=== PATIENT | female | born 1950 | race Native Hawaiian/Other Pacific Islander ===

== ENCOUNTER 2021-12-16 09:45 | Observation (INO) ==
[2021-12-16 10:38] LABS: Basophils # (auto) 0.04 K/uL (0-0.2); Basophils % (auto) 0.5 %; Eosinophils # (auto) 0.31 K/uL (0-0.5); Eosinophils % (auto) 3.7 %; Hematocrit (blood only) 41.5 % (37-47); Hemoglobin 13.4 g/dL (12.0-16.0); Immature Granulocytes # (auto) 0.01 K/uL (0.00-0.02); Immature Granulocytes % (auto) 0.1 %; Lymphocytes # (auto) 3.69 K/uL (1.2-3.4); Lymphocytes % (auto) 43.5 %; Mean Corpuscular Hemoglobin 30.8 pg (25-34); Mean Corpuscular Hgb Conc 32.3 g/dL (32-36); Mean Corpuscular Volume 95.4 fL (80-100); Mean Platelet Volume 9.7 fL (7.4-10.4); Monocytes # (auto) 0.76 K/uL (0.11-0.59); Neutrophils # (auto) 3.68 K/uL (1.4-6.5); Neutrophils % (auto) 43.2 %; Platelet Count 345 K/uL (130-400); RDW Coefficient of Variation 13.7 % (11.5-14.5); RDW Standard Deviation 48.2 fL (36.4-46.3); Red Blood Count 4.35 M/uL (4.2-5.4); White Blood Count 8.49 K/uL (4.8-10.8)
--- NOTE | 2021-12-16 10:48 | XRay Report ---
SINGLE VIEW CHEST CLINICAL HISTORY: Atypical chest pain. FINDINGS: An AP, portable, upright chest radiograph is compared to study dated 10/22/2021 and correlat ed with chest CT dated 09/09/2021. The heart is top normal for projection noting atherosclerotic calc ification of the thoracic aorta. Emphysema and chronic interstitial thickening is similar to previous . There is no airspace consolidation or pleural effusion. Scarring/atelectasis is noted at the lung b ases. There are scattered calcified granulomas. No pneumothorax is seen. The skeletal structures are osteopenic. There are healed right-sided rib fractures. IMPRESSION: Emphysematous change with no acute cardiopulmonary abnormality. ACT 112: Negative or not required by law. Electronically signed by: Santos Isaacs M.D. 12/16/2021 10:47 AM
--- NOTE | 2021-12-16 10:53 | Emergency Department Note ---
Impression & Plan Chest pain, Arm pain ED Provider Note NAME: FIDEL MANUEL AGE: 71 SEX: F : 1950 ARRIVES VIA: Ambulance INFORMANT: Patient ED PROVIDER(S): Sid Self DO CHIEF COMPLAINT: chest pain HPI: Patient is a 71-year-old female who presents to the ER with with a past medical history of CAD, MO, hyperlipidemia, smoker, diabetes, and previous CVA who presents to the ER for left arm/axilla pain, as well as chest pain shoulder and jaw pain which started around 8 AM. Lasted for about an hour. [place] similar to her previous MIs but slightly different as she never had any previous chest pain. She denies any belly pain, nausea, vomiting, or diarrhea. No dysuria, urgency, or frequency. She was given nitro and aspirin and symptoms have completely resolved. Her pain is a 0 out of 10. No other symptoms. The jaw and arm pain felt similar to her previous MIs.Last cath/stent was in 2017-18 per patient and family. ROS: See above HPI for pertinent positives & negatives. A total of 10 systems reviewed and were otherwise negative. PAST MEDICAL HISTORY:See Below PAST SURGICAL HISTORY:See Below FAMILY HISTORY:See Below SOCIAL HISTORY:See Below HOME MEDICATIONS:See Below ALLERGIES:See Below VITALS:See Below PHYSICAL EXAMINATION: GENERAL: Sitting up in bed, alert, well appearing, well nourished, no distress, non-toxic EYE EXAM: normal conjunctiva. PERRL and EOM's grossly intact. OROPHARYNX: no exudate, no erythema, lips, buccal mucosa, and tongue normal and mucous membranes are moist NECK: supple, no nuchal rigidity, no adenopathy, non-tender LUNGS: Clear to auscultation. Normal chest wall mechanics HEART: no murmurs, S1 normal and S2 normal ABDOMEN: abdomen soft, non-tender, normo-active bowel sounds, no masses, no rebound or guarding. BACK: Back is symmetrical on inspection and there is no deformity, no midline tenderness, no CVA tenderness. SKIN: no rashes and no bruising UPPER EXTREMITIES: upper extremities are grossly normal. LOWER EXTREMITIES: No pitting edema. Calves are equal bilateral NEURO EXAM: Normal sensorium, cranial nerves II-XII grossly intact, normal speech, no gross weakness of arms, no gross weakness of legs. MEDICAL DECISION MAKING: Patient is a 71-year-old female with previous MIs who presents ER for chest pain arm pain jaw pain. IV was established blood was obtained. Labs show no s ignificant leukocytosis or anemia. BMP along with LFTs bilirubin and lipase is unremarkable. Troponin was negative. She was given aspirin prior to arrival as well as nitro with resolution of her symptoms. This feels similar to his previous MO. EKG was nondiagnostic. Chest x-ray unremarkable. She was updated bedside discussed with the hospitalist admitted for further work-up. Triage Nursing notes reviewed. Limited review of prior medical records performed Vital Signs: reviewed and remarkable for no significant abnormalities Differential diagnosis: Differential diagnoses includes but is not limited to acute coronary syndrome, myocardial infarction, pericarditis, pulmonary embolus, aortic dissection, pneumonia, pneumothorax, musculoskeletal, shingles, esophageal. ER treatment provided: See below Diagnostics interpreted by me: ECG: Sinus rhythm rate 66 Normal axis Left Bundle branch block QTC 492 No significant change from previous with ST depressions in the high lateral leads and left bundle Cardiac Monitoring: An order was placed for continuous cardiac monitoring. The monitor shows a rate of 70 with sinus rhythm. Laboratory studies: As stated above and show below. Imaging studies: Portable AP upright 1 view of the chest was unremarkable Consultation(s): Discussed with hospitalist for further evaluation Procedures: none Critical Care: None Past Med/Surg History Medical History Asthma CAD (coronary atherosclerotic disease) Diabetes Generalized anxiety disorder Glaucoma History of MO (myocardial infarction) History of tobacco abuse Hyperlipidemia Hypertension Hypothyroid Mild cognitive disorder Presence of drug-eluting stent in right coronary artery Seizure Status post insertion of drug-eluting stent into left anterior descending (LAD) artery TIA (transient ischemic attack) Surgical History H/O: hysterectomy Hx of cholecystectomy Hx of wisdom tooth extraction Family History Father Colorectal cancer Cancer Prostate cancer Brother Hypertension Mother Diabetes Denies family history of Ovarian cancer Dyslipidemia Myocardial infarction Breast cancer Lung cancer Social History Smoking Status: Former smoker Tobacco Type: Cigarettes packs per day: 1; Years Smoked: 50; Cigarettes Per Day: 1; Second Hand Exposure: No; Hx Alcohol Use: No Hx Substance Use: No marital status: Current Living Situation: Alone 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 occupational 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 [employer] How many Children do You have: 3 Feels Safe at Home: Yes Childhood Exposure to Second-Hand Smoke: No caffeine: Yes Dental Care, Regularly: Yes Physical Activity Frequency: 5-6 Times per Week Seatbelt Use: always Sunscreen Use: No Allergies Allergies Allergy/AdvReac Type Severity Reaction Status Date / Time Sulfa (Sulfonamide AdvReac Unknown Verified 11/05/21 10:51 Antibiotics) Home Meds Home Medications Medication Instructions Recorded Confirmed aspirin 81 mg chewable tablet 81 mg PO DAILY 04/08/21 12/16/21 zinc 50 mg tablet 50 mg PO DAILY 04/09/21 12/16/21 ascorbate calcium (vitamin C) 500 500 mg PO DAILY 04/23/21 12/16/21 mg tablet cholecalciferol (vitamin D3) 50 50 mcg PO DAILY 04/23/21 12/16/21 mcg (2,000 unit) capsule oxymetazoline 0.05 % nasal spray 2 spray INTRANASAL Q12H PRN 12/16/21 12/16/21 (Afrin (oxymetazoline)) Previous Rx's Medication Instructions Recorded ipratropium 0.5 mg-albuterol 3 mg 3 ml INHALATION Q8H PRN #180 ml 04/06/21 (2.5 mg base)/3 mL nebulization soln atorvastatin 10 mg tablet 10 mg PO DAILY #90 tab 04/20/21 levothyroxine 25 mcg tablet 25 mcg PO DAILY #90 tab 04/20/21 metformin 1,000 mg tablet 1,000 mg PO BID #180 tab 04/20/21 metoprolol tartrate 25 mg tablet 12.5 mg PO BID #90 tab 04/20/21 donepezil 10 mg tablet 10 mg PO HS #90 tab 05/11/21 levetiracetam 500 mg tablet 500 mg PO BID #60 tab 10/12/21 albuterol sulfate 90 mcg/actuation 2 puff INHALATION Q6H PRN #18 g 10/16/21 aerosol inhaler clopidogrel 75 mg tablet 75 mg PO DAILY #30 tab 10/16/21 mirtazapine 7.5 mg tablet 7.5 mg PO DAILY #30 tab 11/05/21 gabapentin 300 mg capsule 300 mg PO DAILY #90 cap 11/17/21 fluticasone fur. 100 mcg-umeclid 1 inh INHALATION DAILY #60 ea 12/15/21 62.5 mcg-vilant 25 mcg inhalat.powder (Trelegy Ellipta) Results & Data (ED) Vital Signs Vital Signs - 24 hr 12/16/21 09:54 12/16/21 09:57 12/16/21 10:44 Temperature 36.6 C Temperature Source Oral Pulse Rate 72 Pulse Rate [Apical] 65 Pulse Rhythm Regular Pulse Strength Normal Respiratory Rate 20 14 Respiratory Effort / Characteristics Non-Labored Spontaneous Non-Labored Spontaneous Respiratory Depth Normal Normal Respiratory Pattern Regular Regular Blood Pressure 125/76 Blood Pressure [Right Arm] 125/76 Blood Pressure Mean 92 Blood Pressure Mean [Right Arm] 92 Blood Pressure Position Sitting Pulse Oximetry 96 94 97 Oxygen Delivery Method Room Air Room Air Room Air Sepsis Recent Fever Within 48 Hours No Sepsis New/Unexplained Change in Mental Status N/A Sepsis Action Taken by Nursing No Action Required 12/16/21 12:25 Temperature Temperature Source Pulse Rate Pulse Rate [Apical] 64 Pulse Rhythm Pulse Strength Respiratory Rate 17 Respiratory Effort / Characteristics Respiratory Depth Normal Respiratory Pattern Blood Pressure Blood Pressure [Right Arm] 120/70 Blood Pressure Mean Blood Pressure Mean [Right Arm] 86 Blood Pressure Position Pulse Oximetry 97 Oxygen Delivery Method Room Air Sepsis Recent Fever Within 48 Hours Sepsis New/Unexplained Change in Mental Status Sepsis Action Taken by Nursing Laboratory Data Result diagrams: 12/16/21 10:00 12/16/21 10:00 Lab Results 12/16/21 12/16/21 Range/Units 10:00 10:00 WBC 8.49 (4.8-10.8) K/uL RBC 4.35 (4.2-5.4) M/uL Hgb 13.4 (12.0-16.0) g/dL Hct 41.5 (37-47) % MCV 95.4 (80-100) fL MCH 30.8 (25-34) pg MCHC 32.3 (32-36) g/dL RDW Std Deviation 48.2 H (36.4-46.3) fL RDW Coeff of Steph 13.7 (11.5-14.5) % Plt Count 345 (130-400) K/uL MPV 9.7 (7.4-10.4) fL Immature Gran % (Auto) 0.1 % Neut % (Auto) 43.2 % Lymph % (Auto) 43.5 % [place] % (Auto) 9.0 % Eos % (Auto) 3.7 % Baso % (Auto) 0.5 % Neut # (Auto) 3.68 (1.4-6.5) K/uL Lymph # (Auto) 3.69 H (1.2-3.4) K/uL [place] # (Auto) 0.76 H (0.11-0.59) K/uL Eos # (Auto) 0.31 (0-0.5) K/uL Baso # (Auto) 0.04 (0-0.2) K/uL Immature Gran # (Auto) 0.01 (0.00-0.02) K/uL Sodium 140 (136-145) mmol/L Potassium 3.6 (3.5-5.1) mmol/L Chloride 107 (98-107) mmol/L Carbon Dioxide 25 (21-32) mmol/L Anion Gap 8 (3-11) BUN 10 (6-23) mg/dl Creatinine 0.73 (0.6-1.2) mg/dl Est Cr Clr Drug Dosing 82.5 ml/min Est GFR ( Amer) 96.7 ml/min Est GFR (Non-Af Amer) 83.4 ml/min BUN/Creatinine Ratio 13.7 (10-20) Glucose 135 H (70-99(Fasting)) mg/dl Calcium 8.8 (8.5-10.1) mg/dl Total Bilirubin 0.3 (0.2-1.0) mg/dl AST 29 (13-39) U/L ALT 18 (7-52) U/L Alkaline Phosphatase 39 (34-104) U/L Troponin I < 0.03 (0-0.04) ng/ml Total Protein 6.7 (6.0-8.3) gm/dl Albumin 4.1 (3.4-5.0) gm/dl Globulin 2.6 (2.5-4.0) gm/dl Albumin/Globulin Ratio 1.6 (0.9-2) Lipase 50 (11-82) U/L Administered Medications Discontinued Medications Ondansetron HCl (Ondansetron Inj 2 Mg/Ml 2 Ml Vial) 4 mg IV NOW STA Stop: 12/16/21 14:37 Last Admin: 12/16/21 14:42 Dose: 4 mg Documented by: [id number] Imaging Data Radiologist's Impression: Chest X-Ray 12/16/21 10:18 SINGLE VIEW CHEST CLINICAL HISTORY: Atypical chest pain. FINDINGS: An AP, portable, upright chest radiograph is compared to study dated 10/22/2021 and correlated with chest CT dated 09/09/2021. The heart is top normal for projection noting atherosclerotic calcification of the thoracic aorta. Emphysema and chronic interstitial thickening is similar to previous. There is no airspace consolidation or pleural effusion. Scarring/atelectasis is noted at the lung bases. There are scattered calcified granulomas. No pneumothorax is seen. The skeletal structures are osteopenic. There are healed right-sided rib fractures. IMPRESSION: Emphysematous change with no acute cardiopulmonary abnormality. ACT 112: Negative or not required by law. Electronically signed by: Santos Isaacs M.D. 12/16/2021 10:47 AM Discharge Plan Visit Data Chief Complaint: Chest Pain ED Provider: Sid Self Discharge Problem: Chest pain, Arm pain Discharge Problem: Chest pain Qualifiers: Chest pain type: unspecified Qualified Code(s): R07.9 - Chest pain, unspecified Arm pain Qualifiers: Laterality: left Qualified Code(s): M79.602 - Pain in left arm
[2021-12-16 11:09] LABS: Troponin I < 0.03 ng/ml (0-0.04)
[2021-12-16 11:10] LABS: Alanine Aminotransferase 18 U/L (7-52); Albumin Globulin Ratio 1.6 (0.9-2); Albumin Level 4.1 gm/dl (3.4-5.0); Alkaline Phosphatase 39 U/L (34-104); Anion Gap 8 (3-11); Aspartate Aminotransferase 29 U/L (13-39); BUN Creatinine Ratio 13.7 (10-20); Bilirubin,Total 0.3 mg/dl (0.2-1.0); Blood Urea Nitrogen 10 mg/dl (6-23); Calcium 8.8 mg/dl (8.5-10.1); Carbon Dioxide 25 mmol/L (21-32); Chloride 107 mmol/L (98-107); Creatinine Clr Calc Pharmacy 82.5 ml/min; Est GFR (African American) 96.7 ml/min; Est GFR (Non-African American) 83.4 ml/min; Globulin 2.6 gm/dl (2.5-4.0); Glucose 135 mg/dl (70-99(Fasting)); Lipase 50 U/L (11-82); Potassium 3.6 mmol/L (3.5-5.1); Sodium 140 mmol/L (136-145); Total Protein 6.7 gm/dl (6.0-8.3)
--- NOTE | 2021-12-16 12:28 | History & Physical Report ---
Date of Service December 16, 2021 Assessment & Plan (1) Atypical chest pain: Plan: Patient did note that symptoms were similar to her previous WA. I did review cath report from 2017, multiple RCA stents at that time Placed in monitored observation Continue to trend cardiac enzymes, first set is negative so far EKG in the morning Continue cardiac medications, low-dose aspirin/clopidogrel/atorvastatin Check fasting lipids Schedule for stress echo in the morning. Consider cardiology consultation if abnormal (2) Hypertension: Plan: Last documented blood pressure 125/76 Continue metoprolol as ordered (3) Diabetes type 2, controlled: Plan: I will hold Metformin for now start diabetic diet Check hemoglobin A1c Sliding scale insulin with meals (4) CAD (coronary atherosclerotic disease): Plan: Medications as noted above (5) COPD with emphysema: Plan: Patient is on as needed albuterol, can order No acute respiratory issues at this time (6) Headache: Plan: It is unclear if this is medication side effect from Keppra. Daughter is concerned regarding a repeat CVA although isolated would be an unusual symptom of this since patient has no other focal neurological issues I will ask neurology to consult, suspect patient will need outpatient ongoing neurology follow-up. For now, can continue Keppra. If this is felt to be source of the headache, may need to be changed over to equivalent medication but will defer this to neurology History of Present Illness Chief Complaint: Chest pain Primary Care Provider: Lui Burns, This is a 71-year-old female with past medical history of CAD, status post stents in the past, previous TIA that presents today complaining of ongoing chest pain. Patient is pleasant good historian, accompanied by her daughter. Of note, they have recently moved within the past year from [place]. Patient tells me that around 815 this morning she started to have chest pain. She describes this as a dull pain in her left axilla that radiates to her left shoulder. Also radiate down her left arm. And also radiating to her left jaw. She had no focal neurological signs with this. Pain was similar to her previous WA although it was accompanied by over chest pain which is not present now. The pain is since resolved and the patient is feeling fine. Of note, she was given nitro by EMS in route. Patient tells me she had a stress test several years ago in [place]. She has had a single cardiology evaluation with Dr. Zenaida villa, and I did review that documentation from 04/28/2021. Daughter is also concerned as the patient has been planing of an ongoing headache. Patient does note a previous history of migraines but more recently had been placed on Keppra for seizure prophylaxis. Although I do see CVA noted in her history, the patient does relate what sounds like a long history of migraine headaches along with potential for previous seizures but no actual diagnosed seizure disorder. Patient has not seen a neurologist since the relocation to this area. Allergies Allergy/AdvReac Type Severity Reaction Status Date / Time Sulfa (Sulfonamide AdvReac Unknown Verified 11/05/21 10:51 Antibiotics) Home Medications Medication Instructions Recorded Confirmed Type ipratropium 0.5 mg-albuterol 3 mg 3 ml INHALATION Q8H PRN #180 ml 04/06/21 12/16/21 Rx (2.5 mg base)/3 mL nebulization soln aspirin 81 mg chewable tablet 81 mg PO DAILY 04/08/21 12/16/21 History zinc 50 mg tablet 50 mg PO DAILY 04/09/21 12/16/21 History atorvastatin 10 mg tablet 10 mg PO DAILY #90 tab 04/20/21 12/16/21 Rx levothyroxine 25 mcg tablet 25 mcg PO DAILY #90 tab 04/20/21 12/16/21 Rx metformin 1,000 mg tablet 1,000 mg PO BID #180 tab 04/20/21 12/16/21 Rx metoprolol tartrate 25 mg tablet 12.5 mg PO BID #90 tab 04/20/21 12/16/21 Rx ascorbate calcium (vitamin C) 500 500 mg PO DAILY 04/23/21 12/16/21 History mg tablet cholecalciferol (vitamin D3) 50 50 mcg PO DAILY 04/23/21 12/16/21 History mcg (2,000 unit) capsule donepezil 10 mg tablet 10 mg PO HS #90 tab 05/11/21 12/16/21 Rx levetiracetam 500 mg tablet 500 mg PO BID #60 tab 10/12/21 12/16/21 Rx albuterol sulfate 90 mcg/actuation 2 puff INHALATION Q6H PRN #18 g 10/16/21 12/16/21 Rx aerosol inhaler clopidogrel 75 mg tablet 75 mg PO DAILY #30 tab 10/16/21 12/16/21 Rx mirtazapine 7.5 mg tablet 7.5 mg PO DAILY #30 tab 11/05/21 12/16/21 Rx gabapentin 300 mg capsule 300 mg PO DAILY #90 cap 11/17/21 12/16/21 Rx fluticasone fur. 100 mcg-umeclid 1 inh INHALATION DAILY #60 ea 12/15/21 12/16/21 Rx 62.5 mcg-vilant 25 mcg inhalat.powder (Trelegy Ellipta) oxymetazoline 0.05 % nasal spray 2 spray INTRANASAL Q12H PRN 12/16/21 12/16/21 History (Afrin (oxymetazoline)) Past Med/Surg History Medical History Asthma CAD (coronary atherosclerotic disease) Diabetes Generalized anxiety disorder Glaucoma History of WA (myocardial infarction) History of tobacco abuse Hyperlipidemia Hypertension Hypothyroid Mild cognitive disorder Presence of drug-eluting stent in right coronary artery Seizure Status post insertion of drug-eluting stent into left anterior descending (LAD) artery TIA (transient ischemic attack) Surgical History H/O: hysterectomy Hx of cholecystectomy Hx of wisdom tooth extraction Family History Father Colorectal cancer Cancer Prostate cancer Brother Hypertension Mother Diabetes Denies family history of Ovarian cancer Dyslipidemia Myocardial infarction Breast cancer Lung cancer Social History Smoking Status: Former smoker Tobacco Type: Cigarettes packs per day: 1; Years Smoked: 50; Cigarettes Per Day: 1; Second Hand Exposure: No; Hx Alcohol Use: No Hx Substance Use: No marital status: Current Living Situation: Alone current occupational status: retired current occupation: [employer] How many Children do You have: 3 Feels Safe at Home: Yes Childhood Exposure to Second-Hand Smoke: No caffeine: Yes Dental Care, Regularly: Yes Physical Activity Frequency: 5-6 Times per Week Seatbelt Use: always Sunscreen Use: No Review of Systems Constitutional: no fever, no chills, no weakness, no weight loss and no weight gain Eyes: as per Subjective / HPI Respiratory: no cough, no chest congestion, no dyspnea and no dyspnea on exertion Cardiovascular: + radiating jaw, neck or arm pain; no chest pain, no dyspnea on exertion, no orthopnea, no palpitations, no lightheadedness and no edema Gastrointestinal: no abdominal pain, no nausea, no vomiting, no constipation and no diarrhea/loose stools Genitourinary: no dysuria, no difficulty urinating, no urinary frequency, no urinary hesitancy, no urinary urgency and no flank pain Musculoskeletal: no back pain, no neck pain, no joint pain, no stiffness and no myalgia Integumentary: no rash Neurologic: + headache(s); no gait abnormality, no unsteadiness, no falls, no generalized weakness, no loss of sensation, no tingling, no lack of coordination, no seizure-like activity, no abnormal speech and no memory loss Physical Exam Constitutional: cooperative; no acute distress Neck: trachea midline, no thyromegaly Respiratory: normal respiratory effort Auscultation: lungs clear to auscultation bilaterally; no crackles, no rales, no rhonchi and no wheezes Cardiovascular: Rate/Rhythm: regular rate and regular rhythm Heart Sounds: normal S1 and normal S2 No point tenderness in left axilla Gastrointestinal (Abdomen): Inspection/Auscultation: abdomen normal to inspection Percussion/Palpation: abdomen soft; abdomen nontender, no guarding, abdomen not rigid and no hepatosplenomegaly Skin: no rashes, warm and dry Neurologic: patellar DTR's 2+ bilat, sensation intact and PERRL, EOMI, accommodation nl, no face palsy, no dysarthria Results & Data Results & Data ([facility]) Vital Signs (Past 12 Hours) Vital Signs Temp Pulse Pulse Resp BP BP Pulse Ox 12/16/21 10:44 97 12/16/21 09:57 36.6 C 72 14 125/76 94 12/16/21 09:54 65 20 125/76 96 Laboratory Results Laboratory Results WBC 8.49 K/uL (4.8-10.8) 12/16/21 10:00 RBC 4.35 M/uL (4.2-5.4) 12/16/21 10:00 Hgb 13.4 g/dL (12.0-16.0) 12/16/21 10:00 Hct 41.5 % (37-47) 12/16/21 10:00 MCV 95.4 fL (80-100) 12/16/21 10:00 MCH 30.8 pg (25-34) 12/16/21 10:00 MCHC 32.3 g/dL (32-36) 12/16/21 10:00 RDW Std Deviation 48.2 fL (36.4-46.3) H 12/16/21 10:00 RDW Coeff of Steph 13.7 % (11.5-14.5) 12/16/21 10:00 Plt Count 345 K/uL (130-400) 12/16/21 10:00 MPV 9.7 fL (7.4-10.4) 12/16/21 10:00 Immature Gran % (Auto) 0.1 % 12/16/21 10:00 Neut % (Auto) 43.2 % 12/16/21 10:00 Lymph % (Auto) 43.5 % 12/16/21 10:00 [place] % (Auto) 9.0 % 12/16/21 10:00 Eos % (Auto) 3.7 % 12/16/21 10:00 Baso % (Auto) 0.5 % 12/16/21 10:00 Neut # (Auto) 3.68 K/uL (1.4-6.5) 12/16/21 10:00 Lymph # (Auto) 3.69 K/uL (1.2-3.4) H 12/16/21 10:00 [place] # (Auto) 0.76 K/uL (0.11-0.59) H 12/16/21 10:00 Eos # (Auto) 0.31 K/uL (0-0.5) 12/16/21 10:00 Baso # (Auto) 0.04 K/uL (0-0.2) 12/16/21 10:00 Immature Gran # (Auto) 0.01 K/uL (0.00-0.02) 12/16/21 10:00 Sodium 140 mmol/L (136-145) 12/16/21 10:00 Potassium 3.6 mmol/L (3.5-5.1) 12/16/21 10:00 Chloride 107 mmol/L (98-107) 12/16/21 10:00 Carbon Dioxide 25 mmol/L (21-32) 12/16/21 10:00 Anion Gap 8 (3-11) 12/16/21 10:00 BUN 10 mg/dl (6-23) 12/16/21 10:00 Creatinine 0.73 mg/dl (0.6-1.2) 12/16/21 10:00 Est Cr Clr Drug Dosing 82.5 ml/min 12/16/21 10:00 Est GFR ( Amer) 96.7 ml/min 12/16/21 10:00 Est GFR (Non-Af Amer) 83.4 ml/min 12/16/21 10:00 BUN/Creatinine Ratio 13.7 (10-20) 12/16/21 10:00 Glucose 135 mg/dl (70-99(Fasting)) H 12/16/21 10:00 Calcium 8.8 mg/dl (8.5-10.1) 12/16/21 10:00 Total Bilirubin 0.3 mg/dl (0.2-1.0) 12/16/21 10:00 AST 29 U/L (13-39) 12/16/21 10:00 ALT 18 U/L (7-52) 12/16/21 10:00 Alkaline Phosphatase 39 U/L (34-104) 12/16/21 10:00 Troponin I < 0.03 ng/ml (0-0.04) 12/16/21 10:00 Total Protein 6.7 gm/dl (6.0-8.3) 12/16/21 10:00 Albumin 4.1 gm/dl (3.4-5.0) 12/16/21 10:00 Globulin 2.6 gm/dl (2.5-4.0) 12/16/21 10:00 Albumin/Globulin Ratio 1.6 (0.9-2) 12/16/21 10:00 Lipase 50 U/L (11-82) 12/16/21 10:00 SARS-CoV-2, RNA, NAAT NEGATIVE (NEGATIVE) 12/16/21 Unknown Impressions Chest X-Ray 12/16/21 10:18 SINGLE VIEW CHEST CLINICAL HISTORY: Atypical chest pain. FINDINGS: An AP, portable, upright chest radiograph is compared to study dated 10/22/2021 and correlated with chest CT dated 09/09/2021. The heart is top normal for projection noting atherosclerotic calcification of the thoracic aorta. Emphysema and chronic interstitial thickening is similar to previous. There is no airspace consolidation or pleural effusion. Scarring/atelectasis is noted at the lung bases. There are scattered calcified granulomas. No pneumothorax is seen. The skeletal structures are osteopenic. There are healed right-sided rib fractures. IMPRESSION: Emphysematous change with no acute cardiopulmonary abnormality. ACT 112: Negative or not required by law. Electronically signed by: Santos Isaacs M.D. 12/16/2021 10:47 AM PG Care Time/CCT Total # of Minutes Spent Total Time Spent with Patient: Total time spent is greater than 50% in coordination of care (as documented) at patient's floor/unit and/or counseling patient: Coding Level of Care Code INT OBSERVATION CARE 71M LVL 3 Diagnoses Atypical chest pain R07.89 Hypertension I10 Diabetes type 2, controlled E11.9 CAD (coronary atherosclerotic disease) I25.10 COPD with emphysema J43.9 Headache R51.9
[2021-12-16] MEDS ORDERED: ONDANSETRON INJ 2 MG/ML 2 ML VIAL IV STA (14:36)
[2021-12-16] MEDS ORDERED: ALBUTEROL HFA 8 GM INHALER INH PRN (15:12)
[2021-12-16] MEDS ORDERED: DEXTROSE 50% 50 ML SYRINGE IV PRN (15:12)
[2021-12-16] MEDS ORDERED: ONDANSETRON INJ 2 MG/ML 2 ML VIAL IV PRN (15:12)
[2021-12-16] MEDS ORDERED: GLUCOSE 10 TABS/TUBE PO PRN (15:12)
[2021-12-16] MEDS ORDERED: CARBOHYDRATES FOR HYPOGLYCEMIA PO PRN (15:12)
[2021-12-16] MEDS ORDERED: GLUCOSE 40% GEL 15 GM TUBE PO PRN (15:12)
[2021-12-16] MEDS ORDERED: GLUCAGON FOR INJ 1 MG VIAL SQ PRN (15:12)
[2021-12-16] MEDS ORDERED: ALBUT/IPRATROP 3MG/0.5MG NEB 3 ML VIAL INH PRN (15:12)
--- NOTE | 2021-12-16 16:08 | Electrocardiogram Report ---
Test Reason : Blood Pressure : / mmHG Vent. Rate : 066 BPM Atrial Rate : 066 BPM P-R Int : 186 ms QRS Dur : 144 ms QT Int : 470 ms P-R-T Axes : 050 016 087 degrees QTc Int : 492 ms Normal sinus rhythm Left bundle branch block Abnormal ECG When compared with ECG of 22-OCT-2021 22:36, No significant change was found Confirmed by Varun Anton ([id number]) on 12/16/2021 4:07:43 PM Referred By: REFERRED SELF Confirmed By:Varun Anton
[2021-12-16] MEDS: ACETAMINOPHEN 325 MG TAB PO PRN (19:33)
[2021-12-16] MEDS: ENOXAPARIN INJ 40 MG/0.4 ML SYR SQ SCH (19:33)
[2021-12-16] MEDS: INSULIN ASPART PER UNIT SC SCH ×2 (19:34→20:46)
[2021-12-16] MEDS: METOPROLOL TARTRATE 25 MG TAB PO SCH (20:40)
[2021-12-16] MEDS: DONEPEZIL HCL 10 MG TAB PO SCH (20:41)
[2021-12-16] MEDS ORDERED: levETIRAcetam 500 MG TAB PO SCH (21:00)
[2021-12-17 03:20] LABS: Basophils # (auto) 0.04 K/uL (0-0.2); Basophils % (auto) 0.5 %; Eosinophils # (auto) 0.26 K/uL (0-0.5); Eosinophils % (auto) 3.3 %; Hematocrit (blood only) 41.7 % (37-47); Hemoglobin 13.5 g/dL (12.0-16.0); Immature Granulocytes # (auto) 0.02 K/uL (0.00-0.02); Immature Granulocytes % (auto) 0.3 %; Lymphocytes # (auto) 3.44 K/uL (1.2-3.4); Lymphocytes % (auto) 43.2 %; Mean Corpuscular Hemoglobin 30.3 pg (25-34); Mean Corpuscular Hgb Conc 32.4 g/dL (32-36); Mean Corpuscular Volume 93.7 fL (80-100); Mean Platelet Volume 9.2 fL (7.4-10.4); Monocytes # (auto) 0.56 K/uL (0.11-0.59); Neutrophils # (auto) 3.64 K/uL (1.4-6.5); Neutrophils % (auto) 45.7 %; Platelet Count 326 K/uL (130-400); RDW Coefficient of Variation 13.5 % (11.5-14.5); RDW Standard Deviation 46.6 fL (36.4-46.3); Red Blood Count 4.45 M/uL (4.2-5.4); White Blood Count 7.96 K/uL (4.8-10.8)
[2021-12-17 03:49] LABS: Alanine Aminotransferase 17 U/L (7-52); Albumin Globulin Ratio 1.6 (0.9-2); Albumin Level 3.9 gm/dl (3.4-5.0); Alkaline Phosphatase 37 U/L (34-104); Anion Gap 6 (3-11); Aspartate Aminotransferase 27 U/L (13-39); BUN Creatinine Ratio 17.5 (10-20); Bilirubin,Total 0.2 mg/dl (0.2-1.0); Blood Urea Nitrogen 14 mg/dl (6-23); Calcium 8.8 mg/dl (8.5-10.1); Carbon Dioxide 27 mmol/L (21-32); Chloride 106 mmol/L (98-107); Cholesterol 150 mg/dl (0-200); Creatinine Clr Calc Pharmacy 75.1 ml/min; Est GFR (African American) 86.6 ml/min; Est GFR (Non-African American) 74.7 ml/min; Globulin 2.4 gm/dl (2.5-4.0); Glucose 107 mg/dl (70-99(Fasting)); HDL Cholesterol 30 mg/dl; Magnesium 1.9 mg/dl (1.7-2.4); Sodium 139 mmol/L (136-145); Total Protein 6.3 gm/dl (6.0-8.3); Triglycerides 460 mg/dl (0-150)
[2021-12-17] MEDS: LEVOTHYROXINE SODIUM 25 MCG TABLET PO SCH (06:01)
[2021-12-17] MEDS: ACETAMINOPHEN 325 MG TAB PO PRN ×2 (06:01→17:51)
[2021-12-17 07:03] LABS: Estimated Average Glucose 160 mg/dl; Hemoglobin A1C 7.2 % (4.5-5.6)
--- NOTE | 2021-12-17 08:12 | Neurology Consultation ---
Date of Consultation December 17, 2021 Assessment & Plan (1) Headache: (2) Seizure: (3) Mild cognitive disorder: (4) Sensory ataxia: (5) Idiopathic polyneuropathy: patient has a history of previous "TIA or stroke" but this is more likely small vessel ischemic disease noted on MRI ( several years ago) as there is no clinical history. She has been on both aspirin and Plavix for this. In addition she has never had any seizures, yet has been on levetiracetam for several years. Patient has a history of migraine headaches which have improved in frequency over time. She is experience a migraine events frequently in the last 2-3 weeks including yesterday and today. Neurologic exam reveals no focal findings, meningeal signs or encephalopathy. However, she does have signs and symptoms consistent with a polyneuropathy (likely secondary to diabetes) and this gives her balance problems consistent with a sensory ataxia. The patient has a history of mild cognitive. Low-dose donepezil. She is functioning very well Recommendations: 1. She does not need, from a neurologic standpoint, to be on both aspirin and Plavix. I would recommend clopidogrel 75 milligrams daily alone. 2. MRI of the brain to evaluate extent severity of small vessel ischemic disease. 3. I am not convinced she needs to be on an anticonvulsant. I recommend decreasing levetiracetam to 250 milligrams twice a day. 4. Sed rate, TSH, B12 5. I would like to follow this patient as an outpatient Overall, I spent a total of 80 minutes with this case including review of records, direct evaluation the patient bedside, and discussion of the case with the patient and RN at bedside, and Dr. Cole, including differential diagnosis and treatment options. History of Present Illness Reason for Consultation: Patient is a 71-year-old, was asked to see the request of Dr. Bowles, for neurologic consultation regarding headaches and other issues. Requesting Physician: Dr. Bowles Attending Physician: Qamar Cole, History of Present Illness This patient has a history of coronary artery disease post HI requiring 2 stents somewhere around 2017. she has a history of type 2 diabetes for at least 5 years, dyslipidemia, and COPD from cigarette smoking. Patient states that over the last several years she has had some nonspecific memory problems and has been on 10 milligrams donepezil daily ever since. The patient has a history of migraine headaches since teenage years. In her 20s and 30s they would occur about once a week but the faded over time. Over the last 5 years she might have a migraine headache perhaps once per year. Typically she will have a headache without triggering factors or aura, waking up in the morning with a right-sided pounding stabbing pain. She would have nausea, photophobia, and phonophobia without vomiting. Gbeu-ydt-uerkxyd medications would help and they would last a few hours. She has never been on a medicine to take daily to prevent headaches. Sometime around 3-4 years ago she was seen by a neurologist who evaluated her for Her symptoms and ended up doing an EEG and an MRI. He told her that she had "mini strokes" and a tendency to have seizures. I do not have any of these results. She has been on 81 milligram aspirin +75 milligrams clopidogrel daily ever since. She has also been taking levetiracetam 500 milligrams twice daily since that time as well. She has never actually had a stroke as far she knows and she has never actually had a seizure. Prior to 2-3 weeks ago she had had a headache for a year or two. sometime 2 or 3 weeks ago she woke up with a pounding headache as before. Headache was no different than her usual headaches and also responded to [id number] medication. These headaches would be almost daily waking up in morning ever since. Two days ago she did not have a headache and yesterday she had a significant headache. This morning she woke up with a very mild right frontotemporal headache. Currently it is dull only. She has no nausea or photophobia. Yesterday around 0800 she had the onset of some left-sided chest pain with some dysesthesias down to her fingers in the left upper extremity. It went up to her jaw. She took 2 Tylenol and was given a nitro by the ambulance crew and by the time she got to the emergency room her symptoms had resolved. She arrived to the emergency room December 16 at 09:54, with a temperature of 36.6, pulse 72 and regular, respiratory rate 14, blood pressure 125/76, and O2 saturation 94 percent. She was asymptomatic without headache, chest pain, or left upper extremity numbness or tingling. She had no focal neurologic deficits, meningeal signs, or encephalopathy. CBC and Chem profile were unremarkable. Glucose was 135. Chest x-ray showed changes consistent with COPD. Overnight she was in normal sinus rhythm in the 60s and 70s with no cardiac dysrhythmia. Today, hemoglobin A1c was 7.2, triglycerides 460, and a total cholesterol 150. CBC and Chem profile will otherwise unremarkable. The patient currently has no headache, speech or vision problem, weakness, numbness, chest pain, shortness of breath, dizziness, balance issues or incontinence of urine. She feels she might be [facility] but she cannot be sure Allergies Allergy/AdvReac Type Severity Reaction Status Date / Time Sulfa (Sulfonamide AdvReac Unknown Verified 11/05/21 10:51 Antibiotics) Home Medications Medication Instructions Recorded Confirmed Type ipratropium 0.5 mg-albuterol 3 mg 3 ml INHALATION Q8H PRN #180 ml 04/06/21 12/16/21 Rx (2.5 mg base)/3 mL nebulization soln aspirin 81 mg chewable tablet 81 mg PO DAILY 04/08/21 12/16/21 History zinc 50 mg tablet 50 mg PO DAILY 04/09/21 12/16/21 History atorvastatin 10 mg tablet 10 mg PO DAILY #90 tab 04/20/21 12/16/21 Rx levothyroxine 25 mcg tablet 25 mcg PO DAILY #90 tab 04/20/21 12/16/21 Rx metformin 1,000 mg tablet 1,000 mg PO BID #180 tab 04/20/21 12/16/21 Rx metoprolol tartrate 25 mg tablet 12.5 mg PO BID #90 tab 04/20/21 12/16/21 Rx ascorbate calcium (vitamin C) 500 500 mg PO DAILY 04/23/21 12/16/21 History mg tablet cholecalciferol (vitamin D3) 50 50 mcg PO DAILY 04/23/21 12/16/21 History mcg (2,000 unit) capsule donepezil 10 mg tablet 10 mg PO HS #90 tab 05/11/21 12/16/21 Rx levetiracetam 500 mg tablet 500 mg PO BID #60 tab 10/12/21 12/16/21 Rx albuterol sulfate 90 mcg/actuation 2 puff INHALATION Q6H PRN #18 g 10/16/21 12/16/21 Rx aerosol inhaler clopidogrel 75 mg tablet 75 mg PO DAILY #30 tab 10/16/21 12/16/21 Rx mirtazapine 7.5 mg tablet 7.5 mg PO DAILY #30 tab 11/05/21 12/16/21 Rx gabapentin 300 mg capsule 300 mg PO DAILY #90 cap 11/17/21 12/16/21 Rx fluticasone fur. 100 mcg-umeclid 1 inh INHALATION DAILY #60 ea 12/15/21 12/16/21 Rx 62.5 mcg-vilant 25 mcg inhalat.powder (Trelegy Ellipta) oxymetazoline 0.05 % nasal spray 2 spray INTRANASAL Q12H PRN 12/16/21 12/16/21 History (Afrin (oxymetazoline)) Patient History Medical History Asthma CAD (coronary atherosclerotic disease) Diabetes Generalized anxiety disorder Glaucoma History of HI (myocardial infarction) History of tobacco abuse Hyperlipidemia Hypertension Hypothyroid Mild cognitive disorder Presence of drug-eluting stent in right coronary artery Seizure Status post insertion of drug-eluting stent into left anterior descending (LAD) artery TIA (transient ischemic attack) Surgical History H/O: hysterectomy Hx of cholecystectomy Hx of wisdom tooth extraction Family History Father , age 85 of metastatic prostate cancer Colorectal cancer Cancer Prostate cancer Brother Hypertension Mother , age 87 with complications of diabetes Diabetes Denies family history of Ovarian cancer Dyslipidemia Myocardial infarction Breast cancer Lung cancer Social History Smoking Status: Former smoker Tobacco Type: Cigarettes packs per day: 1; Years Smoked: 50; Cigarettes Per Day: 1; Smoking End Date: 2 months ago; Second Hand Exposure: Yes; Do You Dip or Chew Tobacco: No; Tobacco Cessation Education Requested by Patient: No Hx Alcohol Use: Yes Alcohol type: hard liquor Alcohol Intake Frequency: Monthly or Less Hx Substance Use: No Preferred Language: Ukrainian Communication Ability: Effective Shampoo Assistant Required: No Beliefs That Will Affect Care: None marital status: Current Living Situation: Alone current occupational status: retired current occupation: retired, age 63, [employer] How many Children do You have: 3 Other Information That Helps Us Care for You: No other: moved 1 year ago from [place] to the [facility]. Feels Safe at Home: Yes Safety Concerns: Feels Safe At This Time Childhood Exposure to Second-Hand Smoke: No caffeine: Yes Dental Care, Regularly: Yes Physical Activity Frequency: 5-6 Times per Week Seatbelt Use: always Sunscreen Use: No Assistive Devices: Glasses Assistive Devices Comment: does not use walker or cane Review of Systems Constitutional: no fever, no fatigue and no weakness Eyes: no diplopia, no eye pain and no worsening vision Ear, Nose, Mouth, Throat: no ear pain, no tinnitus, no hearing loss, no dizziness, no snoring, no hoarseness and no dysphagia Respiratory: no cough and no dyspnea Cardiovascular: no chest pain, no palpitations and no lightheadedness Gastrointestinal: no abdominal pain, no nausea and no vomiting Genitourinary: no dysuria, no urinary frequency and no urinary incontinence Musculoskeletal: + back pain; no neck pain, no radicular pain, no joint pain and no myalgia Integumentary: no rash and no lesions Neurologic: + headache(s) and + memory loss; no gait abnormality, no localized weakness, no generalized weakness, no tingling, no numbness, no tremor(s), no abnormal movements, no abnormal speech and no confusion Psychiatric: no depression, no irritability, no anxiety, no difficulty concentrating, no confusion and no hallucinations Endocrine: no fatigue and no flushing Hematologic / Lymphatic: no easy bleeding and no easy bruising Allergy / Immunological: no urticaria and no problem reported Exam (Neuro) Physical Exam: The patient is right-handed. The patient is awake, alert, and attentive. Speech is normal without any aphasia or dysarthria. The patient can name objects, repeat phrases, and has normal spontaneous speech. Mentation and thought processes are intact, with orientation to person, place and time, and normal fund of knowledge. Attention and concentration are normal. Mood and affect are normal and appropriate. General appearance and grooming are normal. Short and long-term memory are inta ct to conversation. actually, for someone who believe she has memory problems, she does very well. Pupils are 4 mm bilaterally and reactive to light. Extraocular eye muscles are intact without nystagmus. Visual acuity and visual ellis seem normal grossly to confrontation. There are no deficits to sensation in the face in all 3 distributions of the fifth cranial nerve bilaterally. Corneal reflexes are positive bilaterally. Facial strength and symmetry was normal bilaterally. Hearing seems normal bilaterally. Palate moves well without asymmetry. There is normal sternocleidomastoid and trapezius (shoulder shrug) strength bilaterally. Tongue is midline with good strength bilaterally. Neck has a full range of motion without discomfort. There are no cervical bruits bilaterally. There are no cranial or ocular bruits. Heart is without murmur. There is a regular rhythm and rate. Cervical, thoracic, and lumbar spine are nontender to palpation. Gait is slightly wide based, with good arm swing and turns. she is slightly cautious as she moves about. Stance is normal eyes open , but she sways considerably with eyes closed. With outstretched arms there is no drift. There are no resting, postural, or action tremors. There is no ataxia with finger to nose testing. There is good facility in the hands. No other abnormal involuntary movements are noted. Motor strength is 5/5 diffusely in the arms bilaterally including deltoids, biceps, triceps, brachioradialis, wrist flexors and extensors, tip scourer, and intrinsic hand muscles. Motor strength is 5/5 diffusely in the legs bilaterally including hip flexors, quadriceps, hamstrings, gastrocnemius, tibialis anterior, tibialis posterior, and Peroneii muscles. Toe extensors are normal and there is good bulk in the extensor digitorum brevis muscles bilaterally. The limbs have good tone without rigidity or spasticity. There is no atrophy noted in the muscles. Muscle bulk is normal, there is no tenderness to palpation, no myotonia to percussion, and no fasciculations seen. Sensory examination Reveals a stocking decreased pinprick sense loss to the mid lower legs bilaterally. Hands are spared. Reflexes are 0/4 in the biceps, triceps, brachioradialis, and Achilles tendons bilaterally. Quadriceps tendon reflexes are 1/4 bilaterally. There is no clonus bilaterally. Toes are downgoing with plantar stimulation bilaterally. Peripheral pulses are present and of normal quality distally in all 4 limbs. There is no peripheral edema noted in the limbs. Results & Data ([facility]) Vital Signs (Past 12 Hours) Vital Signs Temp Pulse Pulse Resp BP Pulse Ox 12/17/21 08:00 36.7 C 60 18 110/63 95 12/17/21 03:36 36.5 C 56 L 20 104/69 94 12/16/21 23:08 36.6 C 63 16 124/76 91 12/16/21 23:00 61 PG Care Time/CCT Total # of Minutes Spent Total Time Spent with Patient: Total time spent is greater than 50% in coordination of care (as documented) at patient's floor/unit and/or counseling patient: Coding Level of Care Code 97109 Office/Outpt Visit, New Diagnoses Headache R51.9 Seizure R56.9 Mild cognitive disorder F09 Sensory ataxia R27.8 Idiopathic polyneuropathy G60.9 Time Spent (min) 80
[2021-12-17] MEDS: INSULIN ASPART PER UNIT SC SCH ×4 (08:39→20:59)
[2021-12-17] MEDS ORDERED: NON-FORMULARY MEDICATION (Fluticasone-Umeclidin-Vilanter [Trelegy Ellipta] 100-62.5-25 mcg INH SCH (09:00)
[2021-12-17] MEDS: GABAPENTIN 300 MG CAP PO SCH (09:58)
[2021-12-17] MEDS: ASCORBIC ACID 500 MG TAB PO SCH (09:58)
[2021-12-17] MEDS: ZINC SULFATE 220 MG CAPSULE PO SCH (09:58)
[2021-12-17] MEDS: levETIRAcetam 250 MG TAB PO SCH ×2 (09:58→20:57)
[2021-12-17] MEDS: CHOLECALCIFEROL 1,000 UNITS 25 MCG TAB PO SCH (09:58)
[2021-12-17] MEDS: ATORVASTATIN 10 MG TAB PO SCH (09:58)
[2021-12-17] MEDS: CLOPIDOGREL BISULFATE 75 MG TAB PO SCH (09:58)
[2021-12-17] MEDS: ASPIRIN 81 MG CHEW PO SCH (09:58)
[2021-12-17] MEDS: MIRTAZAPINE TAB 15 MG TAB PO SCH (09:59)
[2021-12-17] MEDS: METOPROLOL TARTRATE 25 MG TAB PO SCH ×2 (09:59→20:57)
[2021-12-17] MEDS: FLUTICASONE FUROATE 100MCG 14 PUFFS/INHALER INH SCH (10:00)
[2021-12-17] MEDS: UMECLIDINIUM/VILANTEROL 62.5/25MCG 7 PUFFS/INHALER INH SCH (10:03)
--- NOTE | 2021-12-17 10:19 | Cardiology Consultation ---
Date of Consultation December 17, 2021 Assessment & Plan (1) Unstable angina: (2) CAD (coronary atherosclerotic disease): (3) Presence of drug-eluting stent in right coronary artery: (4) Status post insertion of drug-eluting stent into left anterior descending (LAD) artery: (5) Hypertension: (6) Hyperlipidemia: ASSESSMENT/PLAN: 1. Unstable angina: Given the rise and fall of troponin, symptoms concerning for angina, history of CAD, and improvement/resolution of chest discomfort with nitroglycerin, presentation consistent with unstable angina. Stress testing canceled. Recommend cardiac catheterization. Risks and benefits were discussed with her in detail. She and her daughter were made aware of risks and also that CT surgery is not available at this facility. They are agreeable on pursuing cardiac catheterization when available. Catheterization is not emergent at this point as she is chest pain-free. Continue aspirin and Plavix therapy. Continue statin therapy and beta-radha. 2. CAD s/p RCA and LAD PCI: Continue anti-platelet therapy including aspirin 81 mg daily indefinitely given prior PCI. Continue statin therapy and beta- radha. She reports difficulty with radial access in 2017 catheterization. 3. Hypertension: Blood pressure well controlled. Continue current regimen. 4. Dyslipidemia: LDL has been reasonably controlled on low-dose statin therapy. Consider high-intensity statin therapy. 5. COPD/shortness of breath: Has been documented to have severe COPD. She appears euvolemic. Reports dyspnea with exertion as being chronic and stable. 6. Disposition: Cardiology will continue to follow. Her daughter was contacted via telephone (Sarah Alie) as per patient wishes. Plan was discussed with her. She prefers that her mother proceed with cardiac catheterization. Dr. Cole of the primary hospitalist service was also contacted. On discharge, follow-up with Dr. Estevez, her primary panel builder. Highly complex medical issues. Thank you for allowing me to participate in the care of your patient. Please call for any other questions or concerns. Sincerely, Gurinder Farmer M.D. History of Present Illness Reason for Consultation: Chest pain; hx of CAD; elevated trop Requesting Physician: Qamar Cole DO Attending Physician: Qamar Cole DO History of Present Illness Ms. Wang is a pleasant 71-year-old female with history significant for CAD s/p LAD and RCA PCI in 2017 in setting of MS, type 2 diabetes, hypertension, dyslipidemia, and severe COPD (PFT's 10/06/2021). Her primary panel builder is Dr. Estevez. She moved to [place] in February of 2021 after living in [place]. On 017, she developed NSTEMI and underwent balloon angioplasty of proximal RCA, PCI of mid RCA with 3.5 x 38 mm RUSS and PCI of distal RCA with 3.5 x 9 mm RUSS. She was also noted to have severe LAD disease and underwent staged procedure on 02/03/2017 with PCI of proximal LAD with 3 x 15 mm RUSS. She presented and was admitted on 12/16/2021 for arm and chest pain. She developed left-sided chest pain and left arm pain that radiated to the left jaw while at rest on the couch. Symptoms lasted for 15-20 minutes before resolving after nitroglycerin administration by EMS. There was no associated diaphoresis or shortness of breath. She has not had any recurrent discomfort. She admits that during her MS in 2016, she had left arm symptoms as well. Her initial troponin here was undetectable, but then increased and peaked at 0.16 before trending downward. She has a baseline left bundle branch block dobutamine stress echo had been ordered by the admitting service but due to elevated troponins and her history, her new hospitalist today, Dr. Cole, was contacted and stress testing was canceled and cardiology consultation was requested. She is currently pain-free. She denies shortness of breath at rest, orthopnea, syncope, near-syncope, palpitations, or edema. She has chronic dyspnea with exertion and attributes it to COPD. She had diarrhea few weeks ago for 2 weeks which she attributes to metformin. Diarrhea resolved after she self discontinued metformin. She denies melena, hematochezia, hematuria but does have occasional nausea. Her records indicate seizure disorder but she denies having a seizure ever. Review of systems: As above. Review of systems otherwise negative/unremarkable. Family history: No known premature CAD. Social history: She quit smoking in 2020 after smoking 0.5-1 pack per day for 49 years. Rare alcohol. She lives alone. . Three children. She has a daughter in [place], a son in [place], and a daughter (Sarah Strange) who lives locally and works at [employer]. She was unaccompanied in her room. Allergies Allergy/AdvReac Type Severity Reaction Status Date / Time Sulfa (Sulfonamide AdvReac Unknown Verified 11/05/21 10:51 Antibiotics) Home Medications Medication Instructions Recorded Confirmed Type ipratropium 0.5 mg-albuterol 3 mg 3 ml INHALATION Q8H PRN #180 ml 04/06/21 12/16/21 Rx (2.5 mg base)/3 mL nebulization soln aspirin 81 mg chewable tablet 81 mg PO DAILY 04/08/21 12/16/21 History zinc 50 mg tablet 50 mg PO DAILY 04/09/21 12/16/21 History atorvastatin 10 mg tablet 10 mg PO DAILY #90 tab 04/20/21 12/16/21 Rx levothyroxine 25 mcg tablet 25 mcg PO DAILY #90 tab 04/20/21 12/16/21 Rx metformin 1,000 mg tablet 1,000 mg PO BID #180 tab 04/20/21 12/16/21 Rx metoprolol tartrate 25 mg tablet 12.5 mg PO BID #90 tab 04/20/21 12/16/21 Rx ascorbate calcium (vitamin C) 500 500 mg PO DAILY 04/23/21 12/16/21 History mg tablet cholecalciferol (vitamin D3) 50 50 mcg PO DAILY 04/23/21 12/16/21 History mcg (2,000 unit) capsule donepezil 10 mg tablet 10 mg PO HS #90 tab 05/11/21 12/16/21 Rx levetiracetam 500 mg tablet 500 mg PO BID #60 tab 10/12/21 12/16/21 Rx albuterol sulfate 90 mcg/actuation 2 puff INHALATION Q6H PRN #18 g 10/16/21 12/16/21 Rx aerosol inhaler clopidogrel 75 mg tablet 75 mg PO DAILY #30 tab 10/16/21 12/16/21 Rx mirtazapine 7.5 mg tablet 7.5 mg PO DAILY #30 tab 11/05/21 12/16/21 Rx gabapentin 300 mg capsule 300 mg PO DAILY #90 cap 11/17/21 12/16/21 Rx fluticasone fur. 100 mcg-umeclid 1 inh INHALATION DAILY #60 ea 12/15/21 12/16/21 Rx 62.5 mcg-vilant 25 mcg inhalat.powder (Trelegy Ellipta) oxymetazoline 0.05 % nasal spray 2 spray INTRANASAL Q12H PRN 12/16/21 12/16/21 History (Afrin (oxymetazoline)) Patient History Medical History Asthma CAD (coronary atherosclerotic disease) Diabetes Generalized anxiety disorder Glaucoma History of MS (myocardial infarction) History of tobacco abuse Hyperlipidemia Hypertension Hypothyroid Mild cognitive disorder Presence of drug-eluting stent in right coronary artery Seizure Status post insertion of drug-eluting stent into left anterior descending (LAD) artery TIA (transient ischemic attack) Surgical History H/O: hysterectomy Hx of cholecystectomy Hx of wisdom tooth extraction Family History Father , age 85 of metastatic prostate cancer Colorectal cancer Cancer Prostate cancer Brother Hypertension Mother , age 87 with complications of diabetes Diabetes Denies family history of Ovarian cancer Dyslipidemia Myocardial infarction Breast cancer Lung cancer Social History Smoking Status: Former smoker Tobacco Type: Cigarettes packs per day: 1; Years Smoked: 50; Cigarettes Per Day: 1; Smoking End Date: 2 months ago; Second Hand Exposure: Yes; Do You Dip or Chew Tobacco: No; Tobacco Cessation Education Requested by Patient: No Hx Alcohol Use: Yes Alcohol type: hard liquor Alcohol Intake Frequency: Monthly or Less Hx Substance Use: No Preferred Language: Yoruba Communication Ability: Effective Division Field Inspector Required: No Beliefs That Will Affect Care: None marital status: Single Current Living Situation: Alone current occupational status: retired 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 Feels Safe at Home: Yes Safety Concerns: Feels Safe At This Time Childhood Exposure to Second-Hand Smoke: No caffeine: Yes Dental Care, Regularly: Yes Physical Activity Frequency: 5-6 Times per Week Seatbelt Use: always Sunscreen Use: No Assistive Devices: None Assistive Devices Comment: does not use walker or cane Physical Exam Physical Exam: Gen.: No acute distress. Alert. HEENT: Anicteric sclera. Neck: No JVD. No bruits. Normal carotid upstrokes bilaterally. Cardiac: PMI was nondisplaced. No ventricular heave. Regular. Normal S1-S2. No murmurs, rubs, or gallops. Pulmonary: Decreased breath sounds bilaterally, but otherwise clear to auscultation bilaterally without wheezes, rales, or rhonchi. Abdomen: Soft, nontender, nondistended, with normoactive bowel sounds. No bruits noted. Extremities: Very faint right radial pulse. 1+ left radial pulse. 2+ femoral pulses bilaterally without bruit. 2+ posterior tibialis pulses bilaterally. No edema or cyanosis. Psychiatric: Affect appears appropriate. Results & Data ([facility]) Vital Signs (Past 12 Hours) Vital Signs Temp Pulse Pulse Resp BP Pulse Ox 12/17/21 08:00 36.7 C 60 18 110/63 95 12/17/21 03:36 36.5 C 56 L 20 104/69 94 12/16/21 23:08 36.6 C 63 16 124/76 91 12/16/21 23:00 61 Laboratory Results Laboratory Results - last 24 hr 12/16/21 12/16/21 12/16/21 10:00 10:00 15:34 WBC 8.49 RBC 4.35 Hgb 13.4 Hct 41.5 MCV 95.4 MCH 30.8 MCHC 32.3 RDW Std Deviation 48.2 H RDW Coeff of Steph 13.7 Plt Count 345 MPV 9.7 Immature Gran % (Auto) 0.1 Neut % (Auto) 43.2 Lymph % (Auto) 43.5 Bradley % (Auto) 9.0 Eos % (Auto) 3.7 Baso % (Auto) 0.5 Neut # (Auto) 3.68 Lymph # (Auto) 3.69 H Bradley # (Auto) 0.76 H Eos # (Auto) 0.31 Baso # (Auto) 0.04 Immature Gran # (Auto) 0.01 ESR Sodium 140 Potassium 3.6 Chloride 107 Carbon Dioxide 25 Anion Gap 8 BUN 10 Creatinine 0.73 Est Cr Clr Drug Dosing 82.5 Est GFR ( Amer) 96.7 Est GFR (Non-Af Amer) 83.4 BUN/Creatinine Ratio 13.7 Glucose 135 H POC Glucose Estimat Average Glucose Hemoglobin A1c Calcium 8.8 Magnesium Total Bilirubin 0.3 AST 29 ALT 18 Alkaline Phosphatase 39 Troponin I < 0.03 0.09 H* Total Protein 6.7 Albumin 4.1 Globulin 2.6 Albumin/Globulin Ratio 1.6 Triglycerides Cholesterol LDL Cholesterol, Calc VLDL Cholesterol, Calc HDL Cholesterol Cholesterol/HDL Ratio Lipase 50 TSH SARS-CoV-2, RNA, NAAT 12/16/21 12/16/21 12/16/21 20:45 20:58 Unknown WBC RBC Hgb Hct MCV MCH MCHC RDW Std Deviation RDW Coeff of Steph Plt Count MPV Immature Gran % (Auto) Neut % (Auto) Lymph % (Auto) Bradley % (Auto) Eos % (Auto) Baso % (Auto) Neut # (Auto) Lymph # (Auto) Bradley # (Auto) Eos # (Auto) Baso # (Auto) Immature Gran # (Auto) ESR Sodium Potassium Chloride Carbon Dioxide Anion Gap BUN Creatinine Est Cr Clr Drug Dosing Est GFR ( Amer) Est GFR (Non-Af Amer) BUN/Creatinine Ratio Glucose POC Glucose 112 H Estimat Average Glucose Hemoglobin A1c Calcium Magnesium Total Bilirubin AST ALT Alkaline Phosphatase Troponin I 0.16 H* Total Protein Albumin Globulin Albumin/Globulin Ratio Triglycerides Cholesterol LDL Cholesterol, Calc VLDL Cholesterol, Calc HDL Cholesterol Cholesterol/HDL Ratio Lipase TSH SARS-CoV-2, RNA, NAAT NEGATIVE 12/17/21 12/17/21 12/17/21 03:00 03:00 03:00 WBC 7.96 RBC 4.45 Hgb 13.5 Hct 41.7 MCV 93.7 MCH 30.3 MCHC 32.4 RDW Std Deviation 46.6 H RDW Coeff of Steph 13.5 Plt Count 326 MPV 9.2 Immature Gran % (Auto) 0.3 Neut % (Auto) 45.7 Lymph % (Auto) 43.2 Bradley % (Auto) 7.0 Eos % (Auto) 3.3 Baso % (Auto) 0.5 Neut # (Auto) 3.64 Lymph # (Auto) 3.44 H Bradley # (Auto) 0.56 Eos # (Auto) 0.26 Baso # (Auto) 0.04 Immature Gran # (Auto) 0.02 ESR Sodium 139 Potassium 4.0 Chloride 106 Carbon Dioxide 27 Anion Gap 6 BUN 14 Creatinine 0.80 Est Cr Clr Drug Dosing 75.1 Est GFR ( Amer) 86.6 Est GFR (Non-Af Amer) 74.7 BUN/Creatinine Ratio 17.5 Glucose 107 H POC Glucose Estimat Average Glucose Hemoglobin A1c Calcium 8.8 Magnesium 1.9 Total Bilirubin 0.2 AST 27 ALT 17 Alkaline Phosphatase 37 Troponin I 0.12 H* Total Protein 6.3 Albumin 3.9 Globulin 2.4 L Albumin/Globulin Ratio 1.6 Triglycerides 460 H Cholesterol 150 LDL Cholesterol, Calc TNP VLDL Cholesterol, Calc TNP HDL Cholesterol 30 Cholesterol/HDL Ratio 5.0 Lipase TSH SARS-CoV-2, RNA, NAAT 12/17/21 12/17/21 12/17/21 03:00 07:55 09:28 WBC RBC Hgb Hct MCV MCH MCHC RDW Std Deviation RDW Coeff of Steph Plt Count MPV Immature Gran % (Auto) Neut % (Auto) Lymph % (Auto) Bradley % (Auto) Eos % (Auto) Baso % (Auto) Neut # (Auto) Lymph # (Auto) Bradley # (Auto) Eos # (Auto) Baso # (Auto) Immature Gran # (Auto) ESR Pending Sodium Potassium Chloride Carbon Dioxide Anion Gap BUN Creatinine Est Cr Clr Drug Dosing Est GFR ( Amer) Est GFR (Non-Af Amer) BUN/Creatinine Ratio Glucose POC Glucose 120 H Estimat Average Glucose 160 Hemoglobin A1c 7.2 H Calcium Magnesium Total Bilirubin AST ALT Alkaline Phosphatase Troponin I Total Protein Albumin Globulin Albumin/Globulin Ratio Triglycerides Cholesterol LDL Cholesterol, Calc VLDL Cholesterol, Calc HDL Cholesterol Cholesterol/HDL Ratio Lipase TSH SARS-CoV-2, RNA, NAAT 12/17/21 09:28 WBC RBC Hgb Hct MCV MCH MCHC RDW Std Deviation RDW Coeff of Steph Plt Count MPV Immature Gran % (Auto) Neut % (Auto) Lymph % (Auto) Bradley % (Auto) Eos % (Auto) Baso % (Auto) Neut # (Auto) Lymph # (Auto) Bradley # (Auto) Eos # (Auto) Baso # (Auto) Immature Gran # (Auto) ESR Sodium Potassium Chloride Carbon Dioxide Anion Gap BUN Creatinine Est Cr Clr Drug Dosing Est GFR ( Amer) Est GFR (Non-Af Amer) BUN/Creatinine Ratio Glucose POC Glucose Estimat Average Glucose Hemoglobin A1c Calcium Magnesium Total Bilirubin AST ALT Alkaline Phosphatase Troponin I Total Protein Albumin Globulin Albumin/Globulin Ratio Triglycerides Cholesterol LDL Cholesterol, Calc VLDL Cholesterol, Calc HDL Cholesterol Cholesterol/HDL Ratio Lipase TSH Pending SARS-CoV-2, RNA, NAAT Diagnostic Findings Echo 01/06/2022 preliminary review: Low-normal LV systolic function. Septal motion consistent with bundle-branch block. ECG personally reviewed: ECG 12/16/2021 at 9:50 a.m.: Sinus rhythm 66 beats per minute. LBBB. Chart reviewed. Cardiac catheterization report from 12/18/2016 reviewed from [place] as noted in HPI. Chest x-ray 12/16/2021: Emphysematous change with no acute abnormality per Radiology. Medications Administered Current Inpatient Medications Acetaminophen (Acetaminophen 325 Mg Tab) 650 mg PO Q4H PRN PRN Reason: Pain or Fever Stop: 01/15/22 15:11 Last Admin: 12/17/21 06:01 Dose: 650 mg Documented by: Albuterol (Albuterol Hfa 8 Gm Inhaler) 2 puffs INH Q6H PRN PRN Reason: Shortness Of Breath Or Wheezing Stop: 01/15/22 15:11 Albuterol (Albut/Ipratrop 3mg/0.5mg Neb 3 Ml Vial) 3 ml INH Q8H PRN; Protocol PRN Reason: shortness of breath or wheezing Stop: 01/15/22 15:11 Ascorbic Acid (Ascorbic Acid 500 Mg Tab) 500 mg PO DAILY JARRETT Stop: 01/16/22 08:59 Last Admin: 12/17/21 09:58 Dose: 500 mg Documented by: Aspirin (Aspirin 81 Mg Chew) 81 mg PO DAILY JARRETT Stop: 01/16/22 08:59 Last Admin: 12/17/21 09:58 Dose: 81 mg Documented by: Atorvastatin Calcium (Atorvastatin 10 Mg Tab) 10 mg PO DAILY JARRETT Stop: 01/16/22 08:59 Last Admin: 12/17/21 09:58 Dose: 10 mg Documented by: Clopidogrel Bisulfate (Clopidogrel Bisulfate 75 Mg Tab) 75 mg PO DAILY JARRETT Stop: 01/16/22 08:59 Last Admin: 12/17/21 09:58 Dose: 75 mg Documented by: Dextrose (Dextrose 50% 50 Ml Syringe) 25 - 50 ml IV UD PRN; Protocol PRN Reason: Hypoglycemia Protocol Stop: 01/15/22 15:11 Donepezil HCl (Donepezil Hcl 10 Mg Tab) 10 mg PO HS JARRETT Stop: 01/15/22 20:59 Last Admin: 12/16/21 20:41 Dose: 10 mg Documented by: Enoxaparin Sodium (Enoxaparin Inj 40 Mg/0.4 Ml Syr) 40 mg SQ Q24H JARRETT Stop: 01/15/22 15:59 Last Admin: 12/16/21 19:33 Dose: 40 mg Documented by: Fluticasone Furoate (Fluticasone Furoate 100mcg 14 Puffs/Inhaler) 1 puffs INH DAILY JARRETT Stop: 01/16/22 08:59 Last Admin: 12/17/21 10:00 Dose: 1 puffs Documented by: Gabapentin (Gabapentin 300 Mg Cap) 300 mg PO DAILY JARRETT Stop: 01/16/22 08:59 Last Admin: 12/17/21 09:58 Dose: 300 mg Documented by: Glucagon (Glucagon For Inj 1 Mg Vial) 1 mg SQ UD PRN; Protocol PRN Reason: Hypoglycemia Protocol Stop: 01/15/22 15:11 Glucose (Glucose 10 Tabs/Tube) 4 - 8 tabs PO UD PRN; Protocol PRN Reason: Hypoglycemia Protocol Stop: 01/15/22 15:11 Glucose (Glucose 40% Gel 15 Gm Tube) 15 - 30 gm PO UD PRN; Protocol PRN Reason: Hypoglycemia Protocol Stop: 01/15/22 15:11 Insulin Aspart (Insulin Aspart Per Unit) 0 units SC ACHS [facility] Stop: 01/15/22 16:29 Last Admin: 12/17/21 08:39 Dose: Not Given Documented by: Levetiracetam (Levetiracetam 250 Mg Tab) 250 mg PO BID JARRETT Stop: 01/16/22 09:29 Last Admin: 12/17/21 09:58 Dose: 250 mg Documented by: Levothyroxine Sodium (Levothyroxine Sodium 25 Mcg Tablet) 25 mcg PO DAILYBB JARRETT Stop: 01/16/22 06:29 Last Admin: 12/17/21 06:01 Dose: 25 mcg Documented by: Metoprolol Tartrate (Metoprolol Tartrate 25 Mg Tab) 12.5 mg PO BID JARRETT Stop: 01/15/22 20:59 Last Admin: 12/17/21 09:59 Dose: 12.5 mg Documented by: Mirtazapine (Mirtazapine Tab 15 Mg Tab) 7.5 mg PO DAILY JARRETT Stop: 01/16/22 08:59 Last Admin: 12/17/21 09:59 Dose: 7.5 mg Documented by: Miscellaneous (Carbohydrates For Hypoglycemia ) 15 - 30 gm PO UD PRN PRN Reason: Hypoglycemia Protocol Stop: 01/15/22 15:11 Ondansetron HCl (Ondansetron Inj 2 Mg/Ml 2 Ml Vial) 4 mg IV Q6H PRN PRN Reason: Nausea Stop: 01/15/22 15:11 Umeclidinium/Vilanterol (Umeclidinium/Vilanterol 62.5/25mcg 7 Puffs/Inhaler) 1 puffs INH DAILY JARRETT Stop: 01/16/22 08:59 Last Admin: 12/17/21 10:03 Dose: 1 puffs Documented by: Vitamin D (Cholecalciferol 1,000 Units 25 Mcg Tab) 2,000 units PO DAILY JARRETT Stop: 01/16/22 08:59 Last Admin: 12/17/21 09:58 Dose: 2,000 units Documented by: Zinc Sulfate (Zinc Sulfate 220 Mg Capsule) 220 mg PO DAILY JARRETT Stop: 01/16/22 08:59 Last Admin: 12/17/21 09:58 Dose: 220 mg Documented by: PG Care Time/CCT Total # of Minutes Spent Total Time Spent with Patient: Total time spent is greater than 50% in coordination of care (as documented) at patient's floor/unit and/or counseling patient: Coding Level of Care Code 02515 Initial Inpt Care Lvl 3 Diagnoses Unstable angina I20.0 CAD (coronary atherosclerotic disease) I25.10 Presence of drug-eluting stent in right coronary artery Z95.5 Status post insertion of drug-eluting stent into left anterior descending (LAD) artery Z95.5 Hypertension I10 Hyperlipidemia E78.5
--- NOTE | 2021-12-17 11:10 | Hospitalist Progress Note ---
Date of Service December 17, 2021 Assessment & Plan (1) Atypical chest pain: Plan: Patient did note that symptoms were similar to her previous OR. cath report from 2017, multiple RCA stents at that time troponin magi and fell, up to 0.16 appreciate cardiology consult, Dr. Farmer plans for cath this afternoon follow up routine echocardiogram (2) Hypertension: Plan: BP stable Continue metoprolol as ordered (3) Diabetes type 2, controlled: Plan: I will hold Metformin hemoglobin A1c 7.2% [facility] (4) CAD (coronary atherosclerotic disease): Plan: aspirin 81mg daily Lipitor 10mg Metoprolol, Plavix plan for left heart cath (5) COPD with emphysema: Plan: Patient is on as needed albuterol, can order No acute respiratory issues at this time, no wheezing (6) Headache: Plan: It is unclear if this is medication side effect from Keppra. chronic issue will decrease Keppra to 250mg BID, follow up with Dr. Mcleod in neurology clinic check MRI brain Plan: change to full admission as she will be here through tomorrow Admission and Anticipated Discharge Date Admission Date: December 17, 2021 Subjective patient doing well, no chest pain, no dyspnea, no fever/chills, no nausea she is NPO for cath later today d/w Dr. Farmer, appreciate his input, plan for cath today d/w Dr. Mcleod, he recommends MRI brain, check B12, TSH, ESR he says we can lower Keppra to 250mg BID and he might stop as outpatient reviewed chart from admission Review of Systems Review of Systems: All systems reviewed & are unremarkable except as noted in Subjective Physical Exam Physical Exam: General: well developed, well nourished, no acute distress, comfortable Neck: supple, trachea midline, normal thyroid Lungs: clear to auscultation bilaterally, normal respiratory effort, no accessory muscle use, no distress Heart: regular S1 and S2, no murmur, peripheral pulses normal, capillary refill normal, no edema Abdomen: soft, NT, ND, + BS, no hepatomegaly, normal to percussion Extremities: normal in appearance, no cyanosis, no petechiae, strength is 5/5 bilaterally Neuro: awake, cooperative, moves all extremities, no focal motor deficits, CN II-XII intact, sensation in extremities intact, normal speech Skin: warm, dry, no rash, normal turgor Psych: Awake, alert oriented x 3, euthymic affect Results & Data Results & Data ([facility]) Vital Signs (Past 12 Hours) Vital Signs Temp Pulse Resp BP Pulse Ox 12/17/21 08:00 36.7 C 60 18 110/63 95 12/17/21 03:36 36.5 C 56 L 20 104/69 94 Laboratory Results Laboratory Results - last 24 hr 12/16/21 12/16/21 12/16/21 15:34 20:45 20:58 WBC RBC Hgb Hct MCV MCH MCHC RDW Std Deviation RDW Coeff of Steph Plt Count MPV Immature Gran % (Auto) Neut % (Auto) Lymph % (Auto) [place] % (Auto) Eos % (Auto) Baso % (Auto) Neut # (Auto) Lymph # (Auto) [place] # (Auto) Eos # (Auto) Baso # (Auto) Immature Gran # (Auto) ESR Sodium Potassium Chloride Carbon Dioxide Anion Gap BUN Creatinine Est Cr Clr Drug Dosing Est GFR ( Amer) Est GFR (Non-Af Amer) BUN/Creatinine Ratio Glucose POC Glucose 112 H Estimat Average Glucose Hemoglobin A1c Calcium Magnesium Total Bilirubin AST ALT Alkaline Phosphatase Troponin I 0.09 H* 0.16 H* Total Protein Albumin Globulin Albumin/Globulin Ratio Triglycerides Cholesterol LDL Cholesterol, Calc VLDL Cholesterol, Calc HDL Cholesterol Cholesterol/HDL Ratio Vitamin B12 TSH SARS-CoV-2, RNA, NAAT 12/16/21 12/17/21 12/17/21 Unknown 03:00 03:00 WBC 7.96 RBC 4.45 Hgb 13.5 Hct 41.7 MCV 93.7 MCH 30.3 MCHC 32.4 RDW Std Deviation 46.6 H RDW Coeff of Steph 13.5 Plt Count 326 MPV 9.2 Immature Gran % (Auto) 0.3 Neut % (Auto) 45.7 Lymph % (Auto) 43.2 [place] % (Auto) 7.0 Eos % (Auto) 3.3 Baso % (Auto) 0.5 Neut # (Auto) 3.64 Lymph # (Auto) 3.44 H [place] # (Auto) 0.56 Eos # (Auto) 0.26 Baso # (Auto) 0.04 Immature Gran # (Auto) 0.02 ESR Sodium Potassium Chloride Carbon Dioxide Anion Gap BUN Creatinine Est Cr Clr Drug Dosing Est GFR ( Amer) Est GFR (Non-Af Amer) BUN/Creatinine Ratio Glucose POC Glucose Estimat Average Glucose Hemoglobin A1c Calcium Magnesium Total Bilirubin AST ALT Alkaline Phosphatase Troponin I 0.12 H* Total Protein Albumin Globulin Albumin/Globulin Ratio Triglycerides Cholesterol LDL Cholesterol, Calc VLDL Cholesterol, Calc HDL Cholesterol Cholesterol/HDL Ratio Vitamin B12 TSH SARS-CoV-2, RNA, NAAT NEGATIVE 12/17/21 12/17/21 12/17/21 03:00 03:00 07:55 WBC RBC Hgb Hct MCV MCH MCHC RDW Std Deviation RDW Coeff of Steph Plt Count MPV Immature Gran % (Auto) Neut % (Auto) Lymph % (Auto) [place] % (Auto) Eos % (Auto) Baso % (Auto) Neut # (Auto) Lymph # (Auto) [place] # (Auto) Eos # (Auto) Baso # (Auto) Immature Gran # (Auto) ESR Sodium 139 Potassium 4.0 Chloride 106 Carbon Dioxide 27 Anion Gap 6 BUN 14 Creatinine 0.80 Est Cr Clr Drug Dosing 75.1 Est GFR ( Amer) 86.6 Est GFR (Non-Af Amer) 74.7 BUN/Creatinine Ratio 17.5 Glucose 107 H POC Glucose 120 H Estimat Average Glucose 160 Hemoglobin A1c 7.2 H Calcium 8.8 Magnesium 1.9 Total Bilirubin 0.2 AST 27 ALT 17 Alkaline Phosphatase 37 Troponin I Total Protein 6.3 Albumin 3.9 Globulin 2.4 L Albumin/Globulin Ratio 1.6 Triglycerides 460 H Cholesterol 150 LDL Cholesterol, Calc TNP VLDL Cholesterol, Calc TNP HDL Cholesterol 30 Cholesterol/HDL Ratio 5.0 Vitamin B12 TSH SARS-CoV-2, RNA, NAAT 12/17/21 12/17/21 12/17/21 09:28 09:28 09:28 WBC RBC Hgb Hct MCV MCH MCHC RDW Std Deviation RDW Coeff of Steph Plt Count MPV Immature Gran % (Auto) Neut % (Auto) Lymph % (Auto) [place] % (Auto) Eos % (Auto) Baso % (Auto) Neut # (Auto) Lymph # (Auto) [place] # (Auto) Eos # (Auto) Baso # (Auto) Immature Gran # (Auto) ESR 44 H Sodium Potassium Chloride Carbon Dioxide Anion Gap BUN Creatinine Est Cr Clr Drug Dosing Est GFR ( Amer) Est GFR (Non-Af Amer) BUN/Creatinine Ratio Glucose POC Glucose Estimat Average Glucose Hemoglobin A1c Calcium Magnesium Total Bilirubin AST ALT Alkaline Phosphatase Troponin I Total Protein Albumin Globulin Albumin/Globulin Ratio Triglycerides Cholesterol LDL Cholesterol, Calc VLDL Cholesterol, Calc HDL Cholesterol Cholesterol/HDL Ratio Vitamin B12 Pending TSH Pending SARS-CoV-2, RNA, NAAT 12/17/21 11:06 WBC RBC Hgb Hct MCV MCH MCHC RDW Std Deviation RDW Coeff of Steph Plt Count MPV Immature Gran % (Auto) Neut % (Auto) Lymph % (Auto) [place] % (Auto) Eos % (Auto) Baso % (Auto) Neut # (Auto) Lymph # (Auto) [place] # (Auto) Eos # (Auto) Baso # (Auto) Immature Gran # (Auto) ESR Sodium Potassium Chloride Carbon Dioxide Anion Gap BUN Creatinine Est Cr Clr Drug Dosing Est GFR ( Amer) Est GFR (Non-Af Amer) BUN/Creatinine Ratio Glucose POC Glucose 133 H Estimat Average Glucose Hemoglobin A1c Calcium Magnesium Total Bilirubin AST ALT Alkaline Phosphatase Troponin I Total Protein Albumin Globulin Albumin/Globulin Ratio Triglycerides Cholesterol LDL Cholesterol, Calc VLDL Cholesterol, Calc HDL Cholesterol Cholesterol/HDL Ratio Vitamin B12 TSH SARS-CoV-2, RNA, NAAT Medications Administered Current Inpatient Medications Acetaminophen (Acetaminophen 325 Mg Tab) 650 mg PO Q4H PRN PRN Reason: Pain or Fever Stop: 01/15/22 15:11 Last Admin: 12/17/21 06:01 Dose: 650 mg Documented by: Albuterol (Albuterol Hfa 8 Gm Inhaler) 2 puffs INH Q6H PRN PRN Reason: Shortness Of Breath Or Wheezing Stop: 01/15/22 15:11 Albuterol (Albut/Ipratrop 3mg/0.5mg Neb 3 Ml Vial) 3 ml INH Q8H PRN; Protocol PRN Reason: shortness of breath or wheezing Stop: 01/15/22 15:11 Ascorbic Acid (Ascorbic Acid 500 Mg Tab) 500 mg PO DAILY [facility] Stop: 01/16/22 08:59 Last Admin: 12/17/21 09:58 Dose: 500 mg Documented by: Aspirin (Aspirin 81 Mg Chew) 81 mg PO DAILY [facility] Stop: 01/16/22 08:59 Last Admin: 12/17/21 09:58 Dose: 81 mg Documented by: Atorvastatin Calcium (Atorvastatin 10 Mg Tab) 10 mg PO DAILY [facility] Stop: 01/16/22 08:59 Last Admin: 12/17/21 09:58 Dose: 10 mg Documented by: Clopidogrel Bisulfate (Clopidogrel Bisulfate 75 Mg Tab) 75 mg PO DAILY [facility] Stop: 01/16/22 08:59 Last Admin: 12/17/21 09:58 Dose: 75 mg Documented by: Dextrose (Dextrose 50% 50 Ml Syringe) 25 - 50 ml IV UD PRN; Protocol PRN Reason: Hypoglycemia Protocol Stop: 01/15/22 15:11 Donepezil HCl (Donepezil Hcl 10 Mg Tab) 10 mg PO HS [facility] Stop: 01/15/22 20:59 Last Admin: 12/16/21 20:41 Dose: 10 mg Documented by: Enoxaparin Sodium (Enoxaparin Inj 40 Mg/0.4 Ml Syr) 40 mg SQ Q24H [facility] Stop: 01/15/22 15:59 Last Admin: 12/16/21 19:33 Dose: 40 mg Documented by: Fluticasone Furoate (Fluticasone Furoate 100mcg 14 Puffs/Inhaler) 1 puffs INH DAILY [facility] Stop: 01/16/22 08:59 Last Admin: 12/17/21 10:00 Dose: 1 puffs Documented by: Gabapentin (Gabapentin 300 Mg Cap) 300 mg PO DAILY [facility] Stop: 01/16/22 08:59 Last Admin: 12/17/21 09:58 Dose: 300 mg Documented by: Glucagon (Glucagon For Inj 1 Mg Vial) 1 mg SQ UD PRN; Protocol PRN Reason: Hypoglycemia Protocol Stop: 01/15/22 15:11 Glucose (Glucose 10 Tabs/Tube) 4 - 8 tabs PO UD PRN; Protocol PRN Reason: Hypoglycemia Protocol Stop: 01/15/22 15:11 Glucose (Glucose 40% Gel 15 Gm Tube) 15 - 30 gm PO UD PRN; Protocol PRN Reason: Hypoglycemia Protocol Stop: 01/15/22 15:11 Insulin Aspart (Insulin Aspart Per Unit) 0 units SC ACHS [facility] Stop: 01/15/22 16:29 Last Admin: 12/17/21 08:39 Dose: Not Given Documented by: Levetiracetam (Levetiracetam 250 Mg Tab) 250 mg PO BID [facility] Stop: 01/16/22 09:29 Last Admin: 12/17/21 09:58 Dose: 250 mg Documented by: Levothyroxine Sodium (Levothyroxine Sodium 25 Mcg Tablet) 25 mcg PO DAILYBB [facility] Stop: 01/16/22 06:29 Last Admin: 12/17/21 06:01 Dose: 25 mcg Documented by: Metoprolol Tartrate (Metoprolol Tartrate 25 Mg Tab) 12.5 mg PO BID [facility] Stop: 01/15/22 20:59 Last Admin: 12/17/21 09:59 Dose: 12.5 mg Documented by: Mirtazapine (Mirtazapine Tab 15 Mg Tab) 7.5 mg PO DAILY [facility] Stop: 01/16/22 08:59 Last Admin: 12/17/21 09:59 Dose: 7.5 mg Documented by: Miscellaneous (Carbohydrates For Hypoglycemia ) 15 - 30 gm PO UD PRN PRN Reason: Hypoglycemia Protocol Stop: 01/15/22 15:11 Ondansetron HCl (Ondansetron Inj 2 Mg/Ml 2 Ml Vial) 4 mg IV Q6H PRN PRN Reason: Nausea Stop: 01/15/22 15:11 Umeclidinium/Vilanterol (Umeclidinium/Vilanterol 62.5/25mcg 7 Puffs/Inhaler) 1 puffs INH DAILY [facility] Stop: 01/16/22 08:59 Last Admin: 12/17/21 10:03 Dose: 1 puffs Documented by: Vitamin D (Cholecalciferol 1,000 Units 25 Mcg Tab) 2,000 units PO DAILY [facility] Stop: 01/16/22 08:59 Last Admin: 12/17/21 09:58 Dose: 2,000 units Documented by: Zinc Sulfate (Zinc Sulfate 220 Mg Capsule) 220 mg PO DAILY [facility] Stop: 01/16/22 08:59 Last Admin: 12/17/21 09:58 Dose: 220 mg Documented by: PG Care Time/CCT Total # of Minutes Spent Total Time Spent with Patient: Total time spent is greater than 50% in coordination of care (as documented) at patient's floor/unit and/or counseling patient: Coding Level of Care Code 69410 Subseq Hosp Care Lvl 3 Diagnoses Atypical chest pain R07.89 Hypertension I10 Diabetes type 2, controlled E11.9 CAD (coronary atherosclerotic disease) I25.10 COPD with emphysema J43.9 Headache R51.9
[2021-12-17] MEDS ORDERED: GADOBUTROL 65ML VIAL IV ONE (12:49)
--- NOTE | 2021-12-17 13:48 | Magnetic Resonance Report ---
MR brain wo/w con HISTORY: 71 years-old Female r/o recent stroke acute headache with dizziness COMPARISON: None TECHNIQUE: Multiplanar multisequence MRI of the brain was obtained both with and without the use of 8 mL Gadavist FINDINGS: The midline structures appear unremarkable. Low-lying cerebellar tonsils. Degenerative changes of the imaged cervical spine. No acute intracranial hemorrhage, midline shift, abnormal extra-axial collect ion, hydrocephalus or intracranial mass. No restricted diffusion to suggest acute or subacute infarct . There is no pathologic blooming artifact on the T2 star series. Senescent calcifications of the bas al ganglia. There is moderate diffuse thickening with increased enhancement of the pachymeninges. Mild age-relate d involutional changes. Mild scattered T2/FLAIR hyperintense foci are noted throughout the white robinson er of the cerebral hemispheres. There is no abnormal intracranial enhancement. The cerebral venous si nuses and major arterial flow voids appear patent. Small mastoid effusions. Mild rightward bowing and spurring the nasal septum with minimal mucosal thickening of the paranasal sinuses. The skull, orbit s and soft tissues are unremarkable. IMPRESSION: 1. No acute intracranial abnormality. No acute or subacute infarct. 2. Moderate diffuse thickening and enhancement of the pachymeninges is noted in conjunction with cere bellar tonsillar ectopia. Findings are suggestive of intracranial hypotension. An infectious process is considered less likely. 3. Mild T2/FLAIR hyperintense foci suggest chronic microvascular ischemic disease. ACT 112: Negative or not required by law. The above report was generated using voice recognition software. It may contain grammatical, syntax o r spelling errors. Electronically signed by: Manan Woo M.D. 12/17/2021 1:46 PM
--- NOTE | 2021-12-17 15:02 | XCELERA ---
[id number]
[2021-12-17] MEDS ORDERED: MIDAZOLAM HCL 1 MG/ML 2ML VIAL ONE (16:37)
[2021-12-17] MEDS ORDERED: HEPARIN (PORCINE) 1000 UNIT/ML 10 ML (CATH LAB USE ONLY) ONE (16:37)
[2021-12-17] MEDS ORDERED: fentaNYL citrate 100 MCG/2 ML VIAL ONE (16:37)
[2021-12-17] MEDS ORDERED: niCARdipine HCL INJ 2.5 MG/ML 10 ML AMP ONE (16:37)
[2021-12-17] MEDS ORDERED: NITROGLYCERIN/D5W 100MCG/ML 20ML SYR ONE (16:38)
[2021-12-17] MEDS: ENOXAPARIN INJ 40 MG/0.4 ML SYR SQ SCH (17:49)
[2021-12-17] MEDS: DONEPEZIL HCL 10 MG TAB PO SCH (20:57)
--- NOTE | 2021-12-17 22:31 | Electrocardiogram Report ---
Test Reason : Blood Pressure : / mmHG Vent. Rate : 063 BPM Atrial Rate : 063 BPM P-R Int : 208 ms QRS Dur : 140 ms QT Int : 478 ms P-R-T Axes : 056 -08 070 degrees QTc Int : 489 ms Sinus rhythm Left bundle branch block Abnormal ECG When compared with ECG of 16-DEC-2021 09:50, No significant change was found Confirmed by Ad Farmer ([id number]) on 12/17/2021 10:30:36 PM Referred By: REFERRED SELF Confirmed By:Ad Farmer
[2021-12-18] MEDS: LEVOTHYROXINE SODIUM 25 MCG TABLET PO SCH (06:35)
[2021-12-18] MEDS: INSULIN ASPART PER UNIT SC SCH ×3 (08:30→17:02)
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
[2021-12-18] MEDS: METOPROLOL TARTRATE 25 MG TAB PO SCH (08:44)
[2021-12-18] MEDS: ASCORBIC ACID 500 MG TAB PO SCH (08:44)
[2021-12-18] MEDS: levETIRAcetam 250 MG TAB PO SCH (08:44)
[2021-12-18] MEDS: MIRTAZAPINE TAB 15 MG TAB PO SCH (08:45)
[2021-12-18] MEDS: ZINC SULFATE 220 MG CAPSULE PO SCH (08:45)
[2021-12-18] MEDS: CHOLECALCIFEROL 1,000 UNITS 25 MCG TAB PO SCH (08:45)
[2021-12-18] MEDS: CLOPIDOGREL BISULFATE 75 MG TAB PO SCH (08:45)
[2021-12-18] MEDS: ATORVASTATIN 10 MG TAB PO SCH (08:45)
[2021-12-18] MEDS: GABAPENTIN 300 MG CAP PO SCH (08:45)
[2021-12-18] MEDS: UMECLIDINIUM/VILANTEROL 62.5/25MCG 7 PUFFS/INHALER INH SCH (08:46)
[2021-12-18] MEDS: FLUTICASONE FUROATE 100MCG 14 PUFFS/INHALER INH SCH (08:46)
[2021-12-18] MEDS: ASPIRIN 81 MG CHEW PO SCH (08:53)
[2021-12-18] MEDS ORDERED: LIDOCAINE 1% LOCAL 20 ML VIAL ONE (09:53)
[2021-12-18] MEDS ORDERED: fentaNYL citrate 100 MCG/2 ML VIAL ONE (09:57)
[2021-12-18] MEDS ORDERED: HEPARIN (PORCINE) 1000 UNIT/ML 10 ML (CATH LAB USE ONLY) ONE ×2 (09:57→10:03)
[2021-12-18] MEDS ORDERED: niCARdipine HCL INJ 2.5 MG/ML 10 ML AMP ONE (09:57)
[2021-12-18] MEDS ORDERED: MIDAZOLAM HCL 1 MG/ML 2ML VIAL ONE ×2 (09:57→10:55)
[2021-12-18] MEDS ORDERED: NITROGLYCERIN/D5W 100MCG/ML 20ML SYR ONE (10:02)
--- NOTE | 2021-12-18 11:42 | Pre Anesthesia Assessment ---
Date of Service December 18, 2021 Pre Sedation Assessment Vital Signs Temp Pulse Pulse Pulse Resp BP Pulse Ox 12/18/21 11:30 62 20 136/92 96 12/18/21 08:00 97.9 F 55 L 69 18 112/74 97 12/18/21 02:45 97.5 F L 57 L 16 110/70 94 12/18/21 00:00 67 12/17/21 22:59 97.9 F 60 18 94/60 L 92 12/17/21 19:13 98.1 F 82 18 100/58 L 92 12/17/21 15:33 68 20 118/75 97 12/17/21 15:00 63 12/17/21 13:14 97.7 F 67 18 116/70 92 Cardiovascular RRR, no murmur, no edema Respiratory normal respiratory effort, lungs clear to auscultation Pre-Sedation Airway Assessment Smoking Status: Former smoker Hx Sleep Apnea: No Hx Difficult Intubation: No Short, Thick Neck: No Thyromental Distance: > or= 3.5 Finger Breadths Oral Cavity: + Dentures Mallampati Class: III ASA: ASA3 NPO Status Date of Last Intake of Fluids: 12/17/21 Time of Last Intake of Fluids: 20:00 Date of Last Intake of Solid Food: 12/17/21 Time of Last Intake of Solid Foods: 02:00 Procedure Planning Contraindications for Sedation: none Current Medications Reviewed: Yes Notes The planned sedation has been discussed with the patient. Informed Consent was obtained. I have identified the patient, determined the appropriateness of sedation and have assessed the patient immediately prior to the procedure. All medicine(s) and interventions are by my order.
--- NOTE | 2021-12-18 11:43 | Post Anesthesia Assessment ---
Date of Service December 18, 2021 Post Sedation Assessment Vital Signs Temp Pulse Pulse Pulse Resp BP Pulse Ox 12/18/21 11:30 62 20 136/92 96 12/18/21 08:00 97.9 F 55 L 69 18 112/74 97 12/18/21 02:45 97.5 F L 57 L 16 110/70 94 12/18/21 00:00 67 12/17/21 22:59 97.9 F 60 18 94/60 L 92 12/17/21 19:13 98.1 F 82 18 100/58 L 92 12/17/21 15:33 68 20 118/75 97 12/17/21 15:00 63 12/17/21 13:14 97.7 F 67 18 116/70 92 Recovery Score Activity: Moves 4 extremities Respiration: Deep Breath/Cough Circulation: +/-20% PreAnes Value Consciousness: Fully Awake Oxygen Saturation: > 92% On Room Air Post Anesthesia Score: 10 Discharge Sedation Level of Care: Fast Track Phase II Post Sedation Plan On clinical assessment, the patient appears to have tolerated the sedation without complications. Patient is recovering as anticipated. Patient will continue to be monitored by nursing and may be discharged when sedation discharge criteria are met per below protocol. Upon Completions of procedure up to 15 minutes continue every 5 minute vital signs and the P.A.R. score; then discharge to a Phase I or Fast Track to Phase II per the following guidelines: * Discharge Patient to appropriate Phase II area if PAR is 8 or greater or return to pre- procedure baseline. The post - procedure orders will be as directed. * If PAR score is less than 8 or not return to pre-procedure baseline then patient will follow Phase I monitoring till PAR is reached for Phase II. The Phase I may be done in procedure room or may call to secure a Phase I area. * If naloxone or flumazenil are used for reversal, hold in Phase I for continued monitoring from when last reversal dose was given for a minimum of 60 minutes or longer pending the nurse and/or physician discretion of patient condition before discharge to Phase II. Please call the Sedation Physician to re-evaluate and complete post-note for discharge to Phase II area. Do NOT discharge from procedure sedation or Phase 1 until post- sedation evaluation note is complete by procedure /sedation MD Sedation Discharge Instructions to be given to the patient at discharge to home.
--- NOTE | 2021-12-18 11:46 | Cardiac Catheterization ---
[facility] Data: Thiokol Operator Cardiac Status Clinical evaluation leading to the procedure CAD Presenation: Non STEMI Anginal Classification: CCS III Heart Failure: No Cardiogenic Shock within 24 Hours: No Cardiac Arrest within 24 Hours: No Imaging Studies Past 6 Months: Yes Stress Studies Past 6 Months: No Diagnostic Physicians Name: Ector Damian MD Status: Elective Closure Device Percutaneous Entry Location: Radial Closure Device: Radial Band Recommendations: CABG Intraprocedure Events Significant Disection: No Perforation: No Cardiac Cath Procedure Full Procedure Date December 18, 2021 Pre-Procedure Diagnosis Pre-Procedure Diagnosis: Non STEMI and CAD AUC Score AUC Score: 7 Post-Procedure Diagnosis Post-Procedure Diagnosis: Severe CAD and Normal Intracardiac Pressures Procedure(s) Performed Procedure(s) Performed: Coronary Angiography and Left Heart Cath Line Supervisor Ector Damian MD Cone Picker(s) Andrew Estimated Blood Loss Estimated Blood Loss: 10 Medication(s) Medication(s): Fentanyl, Lidocaine 1%, Nicardipine, Nitroglycerin and Versed Summary of Findings Indication: ACS. History of CAD post prior stenting to RCA, LAD in 2017 Access: 6 Fr left radial artery under ultrasound guidance Catheters: Diagnostic JL 3.5, JR4 Findings: LM -normal caliber, no significant disease LAD -medium caliber, focal 70-80% proximal stenosis before prior stent. Proxima l stent extends into D1 and is without significant in-stent restenosis. Jailed mid LAD with 70% ostial stenosis as exits stent. Distal LAD with luminal irregularities as wraps around apex. Circumflex -medium caliber, 40 to 50% mid segment stenosis. Large OM1 with 60% ostial stenosis. Small distal circumflex with 85% disease prior to very small LPLB. RCA -dominant, large caliber, long mid RCA stent widely patent, 30 to 40% stenosis after stent in mid to distal area, prior distal stent with 60 to 70% in-stent restenosis. Jailed RPDA with 80% ostial stenosis. R-PAV and PLB's without significant disease. LVEDP -4 Arterial Closure: TR band Summary: 1. Severe multivessel coronary artery disease -75% proximal LAD, patent proximal stent into first diagonal, jailed mid LAD 70% stenosis as exits stent 45% mid circumflex, 60% ostial large OM1. Very small distal circumflex 85% stenosis (? acute culprit) Patent mid RCA stent, distal stent with 65% stent restenosis, jailed RPDA with 80% ostial stenosis 2. Normal intracardiac filling pressure Recommendations: Patient with ISIDORO-3 flow throughout and no high risk/critical disease requiring urgent intervention. With complex multivessel disease and diabetes recommend consideration of CABG. Further discussion and planning can be done as an outpatient. In the interim continue DAPT, intensify antianginal therapy. Hemodynamics Rest Ao:: 100/67/83 Final Ao: 132/75/98 LV: 110/6 Recommendations Recommendations: CABG Specimens Specimens: None Radiation Exposure (mGy) 479 Contrast (mls) 80 Drains Drains: None Anesthesia Moderate 1053 1120 Procedural Complication(s) None Disposition PCU I attest to the content of the Intraoperative Record and any orders documented therein. Any exceptions are noted below. [facility] Card Cath Procedure Codes Cardiac Catheterization Procedure 1: Cardiovascular Cath Procedures: 02764 Coronaries and LHC (+/-LV) Moderate Sedation Procedure 1: Sedation/Anesthesia: 93959 Mod Sedation by the same physician;Init15 Min Child Age 5 & Up PG Care Time/CCT Total # of Minutes Spent Total Time Spent with Patient: Total time spent is greater than 50% in coordination of care (as documented) at patient's floor/unit and/or counseling patient:
[2021-12-18] MEDS: ACETAMINOPHEN 325 MG TAB PO PRN (14:00)
--- NOTE | 2021-12-18 14:11 | Electrocardiogram Report ---
Test Reason : Blood Pressure : / mmHG Vent. Rate : 065 BPM Atrial Rate : 065 BPM P-R Int : 182 ms QRS Dur : 138 ms QT Int : 450 ms P-R-T Axes : 047 000 122 degrees QTc Int : 468 ms Normal sinus rhythm Left bundle branch block Abnormal ECG When compared with ECG of 17-DEC-2021 05:54, No significant change was found Confirmed by Varun Anton ([id number]) on 12/18/2021 2:10:55 PM Referred By: REFERRED SELF Confirmed By:Varun Anton
[2021-12-18 14:50] LABS: Lyme Ab IgG w/WB Rflx Negative (Negative); Lyme Ab IgM w/WB Rflx Negative (Negative)
[2021-12-18 15:01] LABS: Prolactin 9.55 ng/ml
[2021-12-18 15:08] LABS: Vitamin D, 25 Hydrox 40.6 ng/ml (30-100)
--- NOTE | 2021-12-18 15:22 | Discharge Summary ---
Date of Service December 18, 2021 Admission HPI Per Admitting Provider This is a 71-year-old female with past medical history of CAD, status post stents in the past, previous TIA that presents today complaining of ongoing chest pain. Patient is pleasant good historian, accompanied by her daughter. Of note, they have recently moved within the past year from [place]. Patient tells me that around 815 this morning she started to have chest pain. She describes this as a dull pain in her left axilla that radiates to her left shoulder. Also radiate down her left arm. And also radiating to her left jaw. She had no focal neurological signs with this. Pain was similar to her previous OK although it was accompanied by over chest pain which is not present now. The pain is since resolved and the patient is feeling fine. Of note, she was given nitro by EMS in route. Patient tells me she had a stress test several years ago in [place]. She has had a single cardiology evaluation with Dr. Zenaida villa, and I did review that documentation from 04/28/2021. Daughter is also concerned as the patient has been planing of an ongoing headache. Patient does note a previous history of migraines but more recently had been placed on Keppra for seizure prophylaxis. Although I do see CVA noted in her history, the patient does relate what sounds like a long history of migraine headaches along with potential for previous seizures but no actual diagnosed seizure disorder. Patient has not seen a neurologist since the relocation to this area. Principal Diagnosis Unstable angina, severe triple vessel disease Discharge Exam General: well developed, well nourished, no acute distress, comfortable Neck: supple, trachea midline, normal thyroid Lungs: clear to auscultation bilaterally, normal respiratory effort, no accessory muscle use, no distress Heart: regular S1 and S2, no murmur, peripheral pulses normal, capillary refill normal, no edema Abdomen: soft, NT, ND, + BS, no hepatomegaly, normal to percussion Extremities: normal in appearance, no cyanosis, no petechiae, strength is 5/5 bilaterally Neuro: awake, cooperative, moves all extremities, no focal motor deficits, CN II -XII intact, sensation in extremities intact, normal speech Skin: warm, dry, no rash, normal turgor Psych: Awake, alert oriented x 3, euthymic affect Discharge Data Allergies Allergy/AdvReac Type Severity Reaction Status Date / Time Sulfa (Sulfonamide AdvReac Unknown Verified 11/05/21 10:51 Antibiotics) Consultations 12/16/21 11:28 ED Decision to Admit Stat 12/16/21 15:12 Consult Neurology Routine 12/17/21 08:30 Consult Cardiology Routine Procedures Performed Operation Date: 12/17/21 16:00 <No data on this case meets the specified criteria> Operation Date: 12/18/21 09:30 Actual Procedures p Cineradiography w/Routine Exam - Justino Damian MD s Cath, Left with Cors and Vent - Justino Damian MD s Ultrasound Vascular Access - Justino Damian MD Ordered Studies 12/17/21 10:17 MR brain wo/w con Routine 12/18/21 10:23 CL Cath Imgs for PACS use only Routine Hospital Course (1) Atypical chest pain: Patient did note that symptoms were similar to her previous OK. cath report from 2017, multiple RCA stents at that time troponin magi and fell, up to 0.16 appreciate cardiology consult, Dr. Farmer, patient with left heart cath on day of discharge she has severe RCA disease, needs tertiary care with atherectomy and stent low ISIDORO score, not high risk lesion at this time d/w Dr. Damian, continue aspirin and Plavix add Imdur 30mg to help with angina symptoms increase metoprolol to 25mg twice a day from 12.5mg twice a day follow up with Dr. Estevez, referral to tertiary care for CABG or advanced interventional cardiology (2) Hypertension: BP stable Continue metoprolol and add Imdur (3) Diabetes type 2, controlled: continue to hold Metformin for 2 more days on discharge due to IV contrast dye with [facility] sugars stable while here on Novolog SS diabetic diet hemoglobin A1c 7.2% (4) CAD (coronary atherosclerotic disease): aspirin 81mg daily Lipitor 10mg Metoprolol, Plavix see above (5) COPD with emphysema: Patient is on as needed albuterol, can order No acute respiratory issues at this time, no wheezing (6) Headache: It is unclear if this is medication side effect from Keppra. chronic issue will decrease Keppra to 250mg BID, follow up with Dr. Mcleod in neurology clinic check MRI brain, has idiopathic hypertrophic pachymeningitis, see below (7) Idiopathic hypertrophic pachymeningitis: will reduce Kepra to 250mg BID, Dr. Mcleod will likely stop it and then get EEG when patient off antiepileptics sent several tests, see discharge instructions follow up with Dr. Mcleod for definitive plan, will see in 1-2 weeks Total Time Total Time Spent Total Time Spent (In Minutes): 46 minutes Total Time Includes: Examination of the Patient, Discharge Planning, Medication Reconciliation and Communication With Other Providers Discharge Plan Discharge Items Patient Disposition: Home - Self-Care Reason For Visit: CHEST PAIN Discharge Diagnosis: Severe CAD, triple vessel Questionable intracranial hypotension Condition on Discharge: Good Goals: follow up with Dr. Estevez, cardiology, with referral to cardiothoracic surgery follow up with Dr. Mcleod, neurology, in 1-2 weeks Activity: As commented below Exercise Comment: avoid strenuous activity Weightbearing: Full weightbearing Non-emergency contact: Primary Care Provider Call non-emergency contact if: you have any medication questions and your symptoms worsen Follow-up/Referrals: Brody Mcleod MD [Physician] - 12/28/21 1:00 pm (1-2 weeks, Dr. Mcleod wants to see her) Mark Estevez Jr, MD, [facility] [Physician] - 01/04/22 11:30 am (2 weeks, follow up cath, needs referral for cardiothoracic) Lui Burns DO [Primary Care Provider] - 12/24/21 11:30 am (one week) Diet: Carb Consistent or DM2 and Heart Healthy Addtl Attending Provider Instructions: Medications: - Keppra: REDUCE to 250mg twice a day, Dr Mcleod will likely stop this medication after he sees you in clinic - Metoprolol: INCREASE this to 25mg twice a day, you had previously been taking 12.5mg twice a day - Isosorbide mononitrate (Imdur): new blood pressure medication, but also is a vasodilator and helps control angina (chest pain), 30mg daily in the morning - Metformin: HOLD this over the weekend because you had IV contrast dye with heart cath, can resume on Tuesday Chest pain, angina: found to have severe triple vessel disease, none of these are considered high risk, can wait to follow up with Dr. Estevez and then cardiothoracic surgery continue aspirin and Plavix, Lipitor, metoprolol and will add Imdur Follow up with Dr Mcleod concerning possible intracranial hypotension several send out labs were drawn prior to discharge, he will get those results likely will stop your Keppra, please reduce dose to 250mg twice a day Pending Studies at Discharge: Yes Studies:: MAURI screen, Lyme, Vitamin D, Prolactin level Stand-Alone Forms: My [facility] [employer] Info, Smoking Cessation Medications and DC Order Prescriptions: New levetiracetam [Keppra] 250 mg Tablet 250 mg PO BID 30 Days Qty: 60 RF: 0 metoprolol tartrate 25 mg Tablet 25 mg PO BID 30 Days Qty: 60 RF: 1 isosorbide mononitrate 30 mg tablet extended release 24 hr 30 mg PO DAILY Qty: 30 RF: 1 Continued donepezil 10 mg tablet 10 mg PO HS Qty: 90 RF: 3 albuterol sulfate 90 mcg/actuation HFA aerosol inhaler 2 puff inhalation Q6H PRN (Reason: Shortness Of Breath Or Wheezing) Qty: 18 RF: 3 clopidogrel 75 mg tablet 75 mg PO DAILY Qty: 30 RF: 11 gabapentin 300 mg capsule 300 mg PO DAILY Qty: 90 RF: 3 Trelegy Ellipta 100-62.5-25 mcg blister with device 1 inh inhalation DAILY Qty: 60 RF: 5 zinc 50 mg tablet 50 mg PO DAILY RF: 0 ascorbate calcium (vitamin C) 500 mg tablet 500 mg PO DAILY RF: 0 cholecalciferol (vitamin D3) 50 mcg (2,000 unit) capsule 50 mcg PO DAILY RF: 0 ipratropium-albuterol 0.5 mg-3 mg(2.5 mg base)/3 mL solution for nebulization 3 ml inhalation Q8H PRN (Reason: shortness of breath or wheezing) Qty: 180 RF: 2 aspirin 81 mg tablet,chewable 81 mg PO DAILY RF: 0 metformin 1,000 mg tablet 1,000 mg PO BID Qty: 180 RF: 3 atorvastatin 10 mg tablet 10 mg PO DAILY Qty: 90 RF: 3 levothyroxine 25 mcg tablet 25 mcg PO DAILY Qty: 90 RF: 3 mirtazapine 7.5 mg tablet 7.5 mg PO DAILY Qty: 30 RF: 2 oxymetazoline [Afrin (oxymetazoline)] 0.05 % Marquez,Non-Aerosol 2 spray INTRANASAL Q12H PRN (Reason: Nasal Congestion) RF: 0 Discontinued levetiracetam 500 mg tablet 500 mg PO BID Qty: 60 RF: 5 metoprolol tartrate 25 mg tablet 12.5 mg PO BID Qty: 90 RF: 3 Discharge Orders: Discharge Order (Routine); Ordered 12/18/21 Ordered By: Qamar Barboza/Other Patient Handouts: A1C, Managing Type 2 Diabetes Admission Data Admit Date/Time: 12/17/21 09:30 Attending Provider: Qamar Cole Admit Provider: Isaac Bowles Primary Care Provider: Lui Burns Other Providers: Isaac Bowles ; Brody Mcleod ; Ad Farmer Other Interventions: Discharge Summary Assessment (RN) Last Done: 12/18/21 17:54 Coding Level of Care Code D/C DAY MANAGEMENT >30 MINS Diagnoses Atypical chest pain R07.89 Hypertension I10 Diabetes type 2, controlled E11.9 CAD (coronary atherosclerotic disease) I25.10 COPD with emphysema J43.9 Headache R51.9 Idiopathic hypertrophic pachymeningitis G03.9
[2021-12-18] MEDS ORDERED: LORATADINE 10 MG TAB PO ONE (15:27)
[2021-12-18] MEDS: ENOXAPARIN INJ 40 MG/0.4 ML SYR SQ SCH (16:46)
--- NOTE | 2021-12-18 18:22 | Cardiology Progress Note ---
Date of Service December 18, 2021 Assessment & Plan (1) Unstable angina: Plan: Multivessel CAD 2. Hypertension 3. Dyslipidemia 4. Headache Reviewed findings of cardiac catheterization with patient and daughter today. Has complex multivessel disease but no critical/high risk disease requiring urgent intervention. On admission was on minimal antianginal therapy and recommend intensifying therapy on discharge. With diabetes recommend consideration of CABG which can be discussed with her primary account maintenance representative Dr. Estevez as an outpatient. Currently chest pain-free with no access to complications. From a cardiac standpoint okay with discharge today. On discharge continue DAPT with aspirin, clopidogrel, continue statin. Increase metoprolol to 25 twice daily and agree with starting Imdur 30 mg daily. Follow-up with Dr. Estevez in 1 to 2 weeks. Admission and Anticipated Discharge Date Admission Date: December 17, 2021 Subjective Feeling well this afternoon. States her headache is finally resolved. Denies any chest pain. No pain at left radial artery access site. Review of Systems Review of Systems: All systems reviewed & are unremarkable except as noted in HPI & below Physical Exam Physical Exam: Gen.: No acute distress. Alert. HEENT: Anicteric sclera. Cardiac: Regular. Normal S1-S2. No murmurs, rubs, or gallops. Pulmonary: Clear anteriorly Abdomen: Soft, nontender Extremities: Very faint right radial pulse. 1+ left radial pulse. No edema Psychiatric: Affect appears appropriate. Results & Data ([facility]) Vital Signs (Past 12 Hours) Vital Signs Temp Pulse Pulse Pulse Resp BP BP 12/18/21 17:54 98.1 F 74 62 18 140/85 128/74 12/18/21 17:00 74 18 128/74 12/18/21 16:00 98.1 F 76 18 131/82 12/18/21 15:00 97.9 F 78 62 16 142/78 H 12/18/21 14:15 68 142/84 H 12/18/21 13:45 70 145/86 H 12/18/21 13:15 68 143/87 H 12/18/21 13:00 97.9 F 67 20 156/68 H 12/18/21 12:45 65 18 138/78 12/18/21 12:30 97.7 F 62 20 140/79 12/18/21 12:15 97.5 F L 61 20 142/83 H 12/18/21 11:45 58 L 20 140/85 12/18/21 11:30 62 20 136/92 12/18/21 08:00 97.9 F 55 L 69 18 112/74 Pulse Ox 12/18/21 17:54 95 12/18/21 17:00 95 12/18/21 16:00 98 12/18/21 15:00 95 12/18/21 14:15 95 12/18/21 13:45 96 12/18/21 13:15 96 12/18/21 13:00 95 12/18/21 12:45 96 12/18/21 12:30 94 12/18/21 12:15 95 12/18/21 11:45 94 12/18/21 11:30 96 12/18/21 08:00 97 PG Care Time/CCT Total # of Minutes Spent Total Time Spent with Patient: Total time spent is greater than 50% in coordination of care (as documented) at patient's floor/unit and/or counseling patient: Coding Level of Care Code 41174 Subseq Hosp Care Lvl 3 Diagnoses Unstable angina I20.0
[2021-12-23 22:07] LABS: Angiotensin Converting Enzyme 29 U/L (9-67); Anti Cardiolipin Ab IgG <2.0 GPL-U/mL; Anti Cardiolipin Ab IgM <2.0 MPL-U/mL; Anti Nuclear Antibody Screen NEGATIVE (NEGATIVE); Anti-Cardiolipin Ab IgA <2.0 APL-U/mL; Anti-Centromere Ab <1.0 NEG AI (<1.0 NEG); Anti-SS-A <1.0 NEG AI (<1.0 NEG); Anti-SS-B <1.0 NEG AI (<1.0 NEG); Chromatin Antibody <1.0 NEG AI (<1.0 NEG); Complement C3 170 mg/dL (83-193); DNA ds Crithidia NEGATIVE (NEGATIVE); Microsomal Ab <1 IU/mL (<9); RNP Antibody 4.4 POS AI (<1.0 NEG); Scleroderma Anti Scl-70 Ab <1.0 NEG AI (<1.0 NEG); Sm Antibody <1.0 NEG AI (<1.0 NEG)
== END 2021-12-18 18:35 | disposition home or self-care (01) ==
LOC: EDINP 09:45 → ED 09:45 → SUATTDRO 12:31 → 2S 17:54

== ENCOUNTER 2025-03-30 00:48 | Observation (INO) ==
[2025-03-30 01:10] LABS: Basophils # (auto) 0.05 K/uL (0.00-0.20); Basophils % (auto) 0.4 %; Eosinophils % (auto) 2.7 %; Hematocrit (blood only) 41.8 % (37.0-47.0); Hemoglobin 13.6 g/dl (12.0-16.0); Immature Granulocytes # (auto) 0.04 K/uL (0.01-0.20); Immature Granulocytes % (auto) 0.4 %; Lymphocytes # (auto) 3.76 K/uL (1.20-3.40); Lymphocytes % (auto) 33.3 %; Mean Corpuscular Hemoglobin 30.1 pg (25.0-34.0); Mean Corpuscular Hgb Conc 32.5 g/dL (32.0-36.0); Mean Corpuscular Volume 92.5 fL (80.0-100.0); Mean Platelet Volume 8.9 fL (9.4-12.4); Monocytes # (auto) 0.78 K/uL (0.11-0.59); Monocytes % (auto) 6.9 %; Neutrophils # (auto) 6.35 K/uL (1.40-6.50); Neutrophils % (auto) 56.3 %; Platelet Count 343 K/uL (130-400); RDW Coefficient of Variation 13.6 % (11.5-14.5); Red Blood Count 4.52 M/uL (4.20-5.40); White Blood Count 11.28 K/ul (4.8-10.8)
[2025-03-30] MEDS: ACETAMINOPHEN 500 MG TAB PO STA (01:15)
[2025-03-30] MEDS: NITROGLYCERIN 2% OINTMENT 30GM TUBE EXT STA (01:15)
--- NOTE | 2025-03-30 01:15 | Emergency Department Note ---
Impression & Plan Arm pain, left, Status post insertion of drug-eluting stent into left anterior descending (LAD) artery, Presence of drug-eluting stent in right coronary artery, History of coronary artery disease, Abnormal ECG ED Provider Note NAME: FIDEL MANUEL AGE: 74 SEX: Female INFORMANT: Patient and EMS ED PROVIDER(S): Clovis Amaro MD CHIEF COMPLAINT: Arm pain PLAN: Disposition: Admitted Outpatient prescription management: none Referral: None MEDICAL DECISION MAKING: Patient presented with complaining of arm pain and felt like this was her anginal equivalent that occurred when she had her heart attack. Her history is concerning for significant coronary issues. She did have relief with nitroglycerin x 2 prehospital as well as aspirin. Nitropaste was applied. Her ECG is abnormal but not significantly different than prior ECGs. Her CBC showed a borderline leukocytosis. Chemistry panel was unremarkable. Patient's cardiac troponin was within normal limits x 1. Given the patient's symptoms and her history I discussed further evaluation and management in the hospital. Patient in agreement. Consultation was made with Dr. Jerry Mohr of the [facility] service. Patient was evaluated in the ER for further management. Care/management discussed with: manager market Level of care consideration(s): After review of the information above and other included data, I feel the patient requires escalation of care to admission Triage Nursing notes: reviewed and agree them. Vital Signs: reviewed and remarkable for no significant abnormalities Additional History obtained from: EMS regarding prehospital care. Chronic Medical/Social Conditions affecting care: CAD Prior/ Outside/ External records reviewed: Cardiology note from December 2024 reviewed. Patient was seen in follow-up regarding her coronary disease, stented coronary artery on the right as well as her left anterior descending. Differential Diagnosis: Cardiac ischemia, aortic dissection, pulmonary embolism, pneumothorax, pneumonia, pericarditis, myocarditis, esophageal rupture, GERD, cholecystitis, pancreatitis, musculoskeletal, as well as other pathologies. Diagnostics, independently interpreted by me: EC-lead ECG reveals a normal sinus rhythm at 81 bpm. Left axis deviation. Inferior T wave inversion. Nonspecific interventricular conduction delay present. When compared to ECG as of January 14, 2024 as well as February 15, 2022 there is no significant change. Patient has pre-existing left bundle/interventricular conduction delay. Cardiac Monitoring: Cardiac monitoring ordered by me: The patient was placed on continuous cardiac monitoring and observed. It revealed a normal sinus rhythm at 68 beats per minute without ectopy or evidence of dysrhythmia. Medical decision rules: none Imaging studies: Chest x-ray. Findings: A chest x-ray was performed and revealed no pneumothorax, effusion, infiltrate, pulmonary edema, free air under the diaphragm, or wide mediastinum. Impression: No acute disease. HPI: 74 year old Female arrives for evaluation of left arm pain. This started this evening and is improving. The patient also notes the following associated symptoms, mild shortness of breath. The patient has nitro x 1 relieving factors. Current pain is rated as 1/10. Pain was a 5 out of 10. Patient was concerned as it feels similar to prior coronary event. She does not having chest pain with that but having arm pain. She has a stent in the left and a stent in the right coronary artery. EMS did give the patient 1 dose of nitroglycerin which helped. Pt denies LOC, headache, fevers, chills, diaphoresis, visual changes, neck pain, chest pain, nausea, vomiting, abdominal pain, back pain, melena, hematochezia, urinary symptoms, numbness, weakness, lymphadenopathy, rash, or other complaints.. PAST MEDICAL HISTORY: See Below, CAD PAST SURGICAL HISTORY: Stented coronary arteries, CABG, see below SOCIAL HISTORY: See Below, retired HOME MEDICATIONS: See Below ALLERGIES: See Below VITALS: See Below PHYSICAL EXAMINATION: GENERAL: Awake, alert, well-appearing, in no distress HENT: Normocephalic, atraumatic. Oropharynx unremarkable. EYES: Normal conjunctiva. Sclera non-icteric. NECK: Inspection normal. Non-tender. Supple. No nuchal rigidity. FROM. No masses. RESPIRATORY: Clear to auscultation. No wheezes. No rales. Normal respiratory effort. CARDIAC: Normal rate. Normal rhythm. No murmurs. No rubs. Extremities warm and well perfused. Pulses equal. No JVD. GI: Soft, non-distended. No tenderness to palpation. No rebound or guarding. No masses. RECTAL: Deferred. MUSCULOSKELETAL: Atraumatic. Chest examination reveals no tenderness. The back is symmetrical on inspection without obvious abnormality. There is no CVA tenderness to palpation. No joint edema. LOWER EXTREMITIES: Calves are equal size bilaterally and non-tender. No edema. No discoloration. NEURO: Normal sensorium. No sensory or motor deficits noted. SKIN: No rash or jaundice noted. PROCEDURES: none CRITICAL CARE: none OBSERVATION NOTE: none Past Med/Surg History Problem List (Updated 03/30/25 @ 04:13 by Lynn Adame PA-C) Chest pressure Abnormal ECG (Acute) History of coronary artery disease (Acute) Arm pain, left (Acute) Hypertension CAD, multiple vessel S/P CABG x 3 Presence of drug-eluting stent in right coronary artery (Acute) Status post insertion of drug-eluting stent into left anterior descending (LAD) artery (Acute) Antiplatelet or antithrombotic long-term use COPD with emphysema Diabetes type 2, controlled Seizure-like activity B12 deficiency Cognitive impairment Multiple pulmonary nodules Hyperlipidemia Hypothyroid Insomnia Generalized anxiety disorder Cervicalgia Lumbar spinal stenosis Gait abnormality Sensory ataxia TIA (transient ischemic attack) 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 Medical History History of [place] (myocardial infarction) Asymptomatic bacteriuria Non-ST elevation (NSTEMI) myocardial infarction Arm pain Glaucoma Mild cognitive disorder History of tobacco abuse Seizure Asthma Diabetes Exertional shortness of breath Surgical History Hx of wisdom tooth extraction Hx of cholecystectomy H/O: hysterectomy Family History Father , age 85 of metastatic prostate cancer Colorectal cancer Cancer Prostate cancer Brother Hypertension Mother , age 87 with complications of diabetes Diabetes Denies family history of Ovarian cancer Dyslipidemia Myocardial infarction Breast cancer Lung cancer Social History Smoking Status: Current some day smoker Tobacco Type: Cigarettes Age Started Using Tobacco: 22; Age Quit Using Tobacco: 71; packs per day: 1; Cigarettes Per Day: 0; Second Hand Exposure: No; Do You Dip or Chew Tobacco: No; Tobacco Cessation Education Requested by Patient: No Hx Alcohol Use: No Hx Substance Use: No Preferred Language: Jordanian Communication Ability: Effective Rn Clinician Required: No Beliefs That Will Affect Care: None marital status: Single Current Living Situation: Alone Current Living Situation Comment: [facility] current occupational status: retired 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 Feels Safe at Home: Yes Safety Concerns: Feels Safe At This Time Childhood Exposure to Second-Hand Smoke: No caffeine: Yes Dental Care, Regularly: Yes Physical Activity Frequency: 5-6 Times per Week Seatbelt Use: always Sunscreen Use: No Assistive Devices: Glasses and Walker Assistive Devices Comment: using a hearing Allergies Allergies Allergy/AdvReac Type Severity Reaction Status Date / Time mirtazapine AdvReac Mild diarrhea Verified 03/30/25 02:05 Sulfa (Sulfonamide AdvReac Fever Verified 03/30/25 02:16 Antibiotics) Home Meds Home Medications Medication Instructions Recorded Confirmed ascorbic acid (vitamin C) 250 mg 250 mg PO QAM 02/15/22 03/30/25 tablet cholecalciferol (vitamin D3) 25 25 mcg PO QAM 02/15/22 03/30/25 mcg (1,000 unit) tablet aspirin 81 mg chewable tablet 81 mg PO QAM 12/21/23 03/30/25 folic acid 1 mg tablet 1 mg PO QAM 01/14/24 03/30/25 magnesium 250 mg tablet 250 mg PO QAM 01/14/24 03/30/25 zinc gluconate 50 mg tablet 50 mg PO DAILY 03/30/25 03/30/25 Previous Rx's Medication Instructions Recorded melatonin 10 mg capsule 10 mg PO HS PRN sleep #1 cap 03/28/23 Oxygen Home #1 ea 01/17/24 levothyroxine 25 mcg tablet 25 mcg PO DAILYBB #90 tabs 02/10/24 metoprolol tartrate 25 mg tablet 12.5 mg (1/2 x 25 mg) PO BID 90 02/10/24 days #90 tabs fluticasone fur. 100 mcg-umeclid 1 inh inhalation QAM #60 ea 03/26/24 62.5 mcg-vilant 25 mcg inhalat.powder (Trelegy Ellipta) ipratropium 0.5 mg-albuterol 3 mg 3 ml inhalation Q8H PRN shortness 03/26/24 (2.5 mg base)/3 mL nebulization of breath or wheezing #180 mL soln metformin 1,000 mg tablet 1,000 mg PO BID #180 tabs 07/19/24 ondansetron HCl 4 mg tablet 4 mg PO Q8H PRN nausea and 09/20/24 vomiting #30 tabs glipizide 2.5 mg tablet 2.5 mg PO DAILY #90 tabs 11/12/24 atorvastatin 80 mg tablet 80 mg PO QAM #90 tabs 11/13/24 albuterol sulfate 90 mcg/actuation 2 puff inhalation Q6H PRN 12/11/24 aerosol inhaler Shortness Of Breath Or Wheezing #18 grams nitroglycerin 0.4 mg sublingual 0.4 mg sublingual Q5M PRN chest 12/27/24 tablet (Nitrostat) pain #25 tabs cyanocobalamin (vitamin B-12) 1,000 mcg subcut MONTHLY #1 ea 01/02/25 1,000 mcg/mL injection kit blood sugar diagnostic (OneTouch #100 ea 01/15/25 Verio test strips) lancing device with lancets kit #1 ea 01/15/25 (MaximusTouch Delica Plus Lancing Device kit) duloxetine 30 mg capsule,delayed 30 mg PO HS 90 days #90 caps 03/11/25 release (Cymbalta) Results & Data (ED) Vital Signs Vital Signs - 24 hr 03/30/25 00:49 03/30/25 00:49 03/30/25 00:49 Temperature 36.8 C Temperature Source Oral Pulse Rate 83 83 Respiratory Rate 18 18 Respiratory Effort / Characteristics Non-Labored Spontaneous Respiratory Depth Normal Respiratory Pattern Regular Blood Pressure 131/86 Blood Pressure Mean 101 Pulse Oximetry 96 96 96 Oxygen Delivery Method Room Air Room Air Room Air Sepsis Recent Fever Within 48 Hours No Sepsis New/Unexplained Change in Mental Status N/A Sepsis Action Taken by Nursing No Action Required 03/30/25 00:54 03/30/25 01:00 03/30/25 01:31 Temperature Temperature Source Pulse Rate 81 80 71 Respiratory Rate 20 19 Respiratory Effort / Characteristics Respiratory Depth Respiratory Pattern Blood Pressure 135/84 138/94 Blood Pressure Mean 97 108 Pulse Oximetry 96 96 Oxygen Delivery Method Room Air Room Air Sepsis Recent Fever Within 48 Hours Sepsis New/Unexplained Change in Mental Status Sepsis Action Taken by Nursing 03/30/25 02:00 03/30/25 02:30 03/30/25 03:00 Temperature Temperature Source Pulse Rate 70 68 75 Respiratory Rate 15 18 15 Respiratory Effort / Characteristics Respiratory Depth Respiratory Pattern Blood Pressure 100/78 148/94 H 154/92 H Blood Pressure Mean 82 116 112 Pulse Oximetry 95 96 95 Oxygen Delivery Method Room Air Room Air Room Air Sepsis Recent Fever Within 48 Hours Sepsis New/Unexplained Change in Mental Status Sepsis Action Taken by Nursing Laboratory Data 03/30/25 00:54 03/30/25 00:54 Lab Results 03/30/25 Range/Units 00:54 WBC 11.28 H (4.8-10.8) K/ul RBC 4.52 (4.20-5.40) M/uL Hgb 13.6 (12.0-16.0) g/dl Hct 41.8 (37.0-47.0) % MCV 92.5 (80.0-100.0) fL MCH 30.1 (25.0-34.0) pg MCHC 32.5 (32.0-36.0) g/dL RDW Std Deviation 46.0 (36.4-46.3) fL RDW Coeff of Steph 13.6 (11.5-14.5) % Plt Count 343 (130-400) K/uL MPV 8.9 L (9.4-12.4) fL Immature Gran % (Auto) 0.4 % Neut % (Auto) 56.3 % Lymph % (Auto) 33.3 % [place] % (Auto) 6.9 % Eos % (Auto) 2.7 % Baso % (Auto) 0.4 % Neut # (Auto) 6.35 (1.40-6.50) K/uL Lymph # (Auto) 3.76 H (1.20-3.40) K/uL [place] # (Auto) 0.78 H (0.11-0.59) K/uL Eos # (Auto) 0.30 (0.00-0.50) K/uL Baso # (Auto) 0.05 (0.00-0.20) K/uL Immature Gran # (Auto) 0.04 (0.01-0.20) K/uL Sodium 139 (136-145) mmol/L Potassium 4.2 (3.5-5.1) mmol/L Chloride 107 (98-107) mmol/L Carbon Dioxide 24 (21-32) mmol/L Anion Gap 8 (3-11) BUN 15 (6-23) mg/dl Creatinine 0.83 (0.6-1.2) mg/dl Est Cr Clr Drug Dosing 65.9 ml/min eGFR 74.39 BUN/Creatinine Ratio 18.1 (10-20) Glucose 114 H (70-99(Fasting)) mg/dl Calcium 9.3 (8.6-10.3) mg/dl Total Bilirubin 0.3 (0.2-1.0) mg/dl AST 20 (13-39) U/L ALT 12 (7-52) U/L Alkaline Phosphatase 48 (34-104) U/L Troponin I High Sens 7.3 (0-14) pg/ml Total Protein 7.2 (6.0-8.3) gm/dl Albumin 4.3 (3.4-5.0) gm/dl Globulin 2.9 (2.5-4.0) gm/dl Albumin/Globulin Ratio 1.5 (0.9-2) Lipase 53 (11-82) U/L Administered Medications Discontinued Medications Acetaminophen (Acetaminophen 500 Mg Tab) 1,000 mg PO NOW STA Stop: 03/30/25 01:04 Last Admin: 03/30/25 01:15 Dose: 1,000 mg Documented By: DEISY Nitroglycerin (Nitroglycerin 2% Ointment 30gm Tube) 0.5 inch EXT NOW STA Stop: 03/30/25 01:04 Last Admin: 03/30/25 01:15 Dose: 0.5 inch Documented By: DEISY Discharge Plan Visit Data Chief Complaint: Cardiac Assessment Stated Complaint: Cardiac Assessment ED Provider: Clovis Amaro Discharge Problem: Arm pain, left, Status post insertion of drug-eluting stent into left anterior descending (LAD) artery, Presence of drug-eluting stent in right coronary artery, History of coronary artery disease, Abnormal ECG Patient Disposition: Admitted As Inpatient Condition: Good Discharge Instructions Interventions: ED Discharge Assessment Last Done: 03/30/25 04:35
[2025-03-30 01:29] LABS: Albumin Globulin Ratio 1.5 (0.9-2); Albumin Level 4.3 gm/dl (3.4-5.0); BUN Creatinine Ratio 18.1 (10-20); Bilirubin,Total 0.3 mg/dl (0.2-1.0); Calcium 9.3 mg/dl (8.6-10.3); Creatinine Clr Calc Pharmacy 65.9 ml/min; Globulin 2.9 gm/dl (2.5-4.0); Potassium 4.2 mmol/L (3.5-5.1); Total Protein 7.2 gm/dl (6.0-8.3)
[2025-03-30 01:35] LABS: Troponin I High Sensitivity 7.3 pg/ml (0-14)
--- NOTE | 2025-03-30 03:52 | History & Physical Report ---
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 ED evaluation reveals mild leukocytosis 11.28, stable H&H; CMP grossly unremarkable with exception of glucose 114; troponin 7.3, pending repeat; CXR pending official read; EKG normal sinus rhythm possible LAE and nonspecific intraventricular conduction block at 81 bpm.; provided with Tylenol 1 g p.o. and nitroglycerin paste in ED. 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 Reports symptoms similar to prior ID (2016). Patient is s/p RUSS x 2 (RCA, LAD) and CABG x 3 (2021). Follows with cardiology, most recent visit 12/27/2024. Received total of 2 doses NTG, aspirin 324 mg and Nitropaste. Takes aspirin daily. Currently chest pain and arm pain free. - EKG NSR possible LAE and nonspecific intraventricular conduction block with T wave abnormality, but overall appears stable compared to prior EKGs, no overt signs of ischemia - Troponin 7.3, pending repeat - CBC with mild leukocytosis 11.28, but stable H&H - CXR does not appear to have acute findings, pending official read - Echo 12/2021 EF 50 to 55%, septal motion consistent with bundle branch block, no additional findings - pending repeat - Lipid 09/2024 total 138, LDL 51, HDL 43, TG 210 - on atorvastatin 80mg - continue - Zofran prn N/V - NTG prn chest pain - notify provider if use - Continue ASA daily - Continuous cardiac monitoring - No cardio consult at time of admission - adjust as appropriate #T2DM H/o DMT2; home regimen glipizide and metformin - Most recent A1C 01/2025 @ 7.1% - No CT contrast utilized at admission -- SSI deferred at admission - continue po meds and adjust/add SSI as necessary or if prolonged stay - BSG ACHS - Adjust regimen as needed #HTN- Metoprolol - continue #HLD- Atorvastatin - continue #COPD- Stable, no current exacerbation; Follows with pulm, most recent visit 03/26/2024; Albuterol, Trelegy - continue #VIIVANA/CI- Stable, follows with neuro most recent visit being 05/28/2024; Duloxetine - continue -- OF NOTE - ?? possible seizure disorder; pt previously on keppra but has since been weaned off with NO seizures/seizure like activity (per neuro note, 05/28/2024) #Hypothyroidism- Levothyroxine - continue Dispo: Admit, med/tele VTE prophylaxis: Heparinized This document was dictated utilizing Ztail. Please excuse any grammatical errors that may be secondary to use of this software. 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 Patient did receive 1 nitro and full dose aspirin by EMS. 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 Reports that over the course of days leading up to arrival, the pain would come and go but ultimately was tolerable and lasting less than 15 minutes at a time. At exertion and rest. The night of arrival however she got worsening L arm pain that would not resolve and at its worse, the pain was a 6/10 on the pain scale. Currently the patient is pain free. She was concerned when she had associated chest pressure on the L side of her chest as well which prompted her arrival to ED. Reports minimal nausea starting the night of arrival but no vomiting. No fever or chills. No recent injuries or trauma to L arm. Denies SOB, palpitations, abdominal pain, D/C, numbness/tingling, URI symptoms, LUTS, weakness, or syncope. Has had similar episodes of symptom in the past that were preludes to ID, therefore the patient came for evaluation via EMS today. ED evaluation reveals mild leukocytosis 11.28, stable H&H; CMP grossly unremarkable with exception of glucose 114; troponin 7.3, pending repeat; CXR pending official read; EKG normal sinus rhythm possible LAE and nonspecific intraventricular conduction block at 81 bpm.; provided with Tylenol 1 g p.o. and nitroglycerin paste in ED. Please see Dr. Mohr's attestation for adjustments/additions to treatment plan. Allergies Allergy/AdvReac Type Severity Reaction Status Date / Time mirtazapine AdvReac Mild diarrhea Verified 03/30/25 02:05 Sulfa (Sulfonamide AdvReac Fever Verified 03/30/25 02:16 Antibiotics) Home Medications Medication Instructions Recorded Confirmed Type ascorbic acid (vitamin C) 250 mg 250 mg PO QAM 02/15/22 03/30/25 History tablet cholecalciferol (vitamin D3) 25 25 mcg PO QAM 02/15/22 03/30/25 History mcg (1,000 unit) tablet melatonin 10 mg capsule 10 mg PO HS PRN sleep #1 cap 03/28/23 03/30/25 Rx aspirin 81 mg chewable tablet 81 mg PO QAM 12/21/23 03/30/25 History folic acid 1 mg tablet 1 mg PO QAM 01/14/24 03/30/25 History magnesium 250 mg tablet 250 mg PO QAM 01/14/24 03/30/25 History Oxygen Home #1 ea 01/17/24 02/25/25 Rx levothyroxine 25 mcg tablet 25 mcg PO DAILYBB #90 tabs 02/10/24 03/30/25 Rx metoprolol tartrate 25 mg tablet 12.5 mg (1/2 x 25 mg) PO BID 90 02/10/24 03/30/25 Rx days #90 tabs fluticasone fur. 100 mcg-umeclid 1 inh inhalation QAM #60 ea 03/26/24 03/30/25 Rx 62.5 mcg-vilant 25 mcg inhalat.powder (Trelegy Ellipta) ipratropium 0.5 mg-albuterol 3 mg 3 ml inhalation Q8H PRN shortness 03/26/24 03/30/25 Rx (2.5 mg base)/3 mL nebulization of breath or wheezing #180 mL soln metformin 1,000 mg tablet 1,000 mg PO BID #180 tabs 09/05/24 05/17/25 Rx ondansetron HCl 4 mg tablet 4 mg PO Q8H PRN nausea and 09/20/24 03/30/25 Rx vomiting #30 tabs glipizide 2.5 mg tablet 2.5 mg PO DAILY #90 tabs 11/12/24 03/30/25 Rx atorvastatin 80 mg tablet 80 mg PO QAM #90 tabs 11/13/24 03/30/25 Rx albuterol sulfate 90 mcg/actuation 2 puff inhalation Q6H PRN 12/11/24 03/30/25 Rx aerosol inhaler Shortness Of Breath Or Wheezing #18 grams nitroglycerin 0.4 mg sublingual 0.4 mg sublingual Q5M PRN chest 12/27/24 03/30/25 Rx tablet (Nitrostat) pain #25 tabs cyanocobalamin (vitamin B-12) 1,000 mcg subcut MONTHLY #1 ea 01/02/25 03/30/25 Rx 1,000 mcg/mL injection kit blood sugar diagnostic (OneTouch #100 ea 01/15/25 02/25/25 Rx Verio test strips) lancing device with lancets kit #1 ea 01/15/25 02/25/25 Rx (OneTouch Delica Plus Lancing Device kit) duloxetine 30 mg capsule,delayed 30 mg PO HS 90 days #90 caps 03/11/25 03/30/25 Rx release (Cymbalta) zinc gluconate 50 mg tablet 50 mg PO DAILY 03/30/25 03/30/25 History Past Med/Surg History Problem List (Updated 03/30/25 @ 04:13 by Lynn Adame PA-C) Chest pressure Abnormal ECG (Acute) History of coronary artery disease (Acute) Arm pain, left (Acute) Hypertension CAD, multiple vessel S/P CABG x 3 Presence of drug-eluting stent in right coronary artery (Acute) Status post insertion of drug-eluting stent into left anterior descending (LAD) artery (Acute) Antiplatelet or antithrombotic long-term use COPD with emphysema Diabetes type 2, controlled Seizure-like activity B12 deficiency Cognitive impairment Multiple pulmonary nodules Hyperlipidemia Hypothyroid Insomnia Generalized anxiety disorder Cervicalgia Lumbar spinal stenosis Gait abnormality Sensory ataxia TIA (transient ischemic attack) 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 Medical History History of ID (myocardial infarction) Asymptomatic bacteriuria Non-ST elevation (NSTEMI) myocardial infarction Arm pain Glaucoma Mild cognitive disorder History of tobacco abuse Seizure Asthma Diabetes Exertional shortness of breath Surgical History Hx of wisdom tooth extraction Hx of cholecystectomy H/O: hysterectomy Family History Father , age 85 of metastatic prostate cancer Colorectal cancer Cancer Prostate cancer Brother Hypertension Mother , age 87 with complications of diabetes Diabetes Denies family history of Ovarian cancer Dyslipidemia Myocardial infarction Breast cancer Lung cancer Social History Smoking Status: Former smoker Tobacco Type: Cigarettes Age Started Using Tobacco: 22; Age Quit Using Tobacco: 71; packs per day: 1; Second Hand Exposure: Yes; Do You Dip or Chew Tobacco: No; Hx Alcohol Use: No Hx Substance Use: No Preferred Language: Yoruba Communication Ability: Effective Varnisher Apprentice Required: No Beliefs That Will Affect Care: None marital status: Single Current Living Situation: Alone current occupational status: retired 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 Feels Safe at Home: Yes Childhood Exposure to Second-Hand Smoke: No caffeine: Yes Dental Care, Regularly: Yes Physical Activity Frequency: 5-6 Times per Week Seatbelt Use: always Sunscreen Use: No Assistive Devices: Glasses Review of Systems Review of Systems: All systems reviewed & are unremarkable except as noted in Subjective Physical Exam Physical Exam: General: No acute distress, sleeping upon initial arrival into room Skin: Warm and dry Head: Normocephalic, atraumatic Eyes: PERRL, conjunctivae clear, sclera non-icteric; wearing glasses ENT: External ear and ear canal without swelling; nose atraumatic; good dentition, tongue normal appearance, pharynx normal Neck: Supple, no LAD Cardio: RRR, no M/G/R, S1 and S2 normal Resp: No respiratory distress, Lungs CTA in all lobes bilaterally, no wheezes, rales, or rhonchi Abdomen: Soft, symmetric, nontender; No masses or hepatosplenomegaly; Bowel sounds normoactive MSK: No deformities; pulses palpable and equal; trace pitting edema BLE Neuro: Awake, alert; Sensation intact bilaterally; CN grossly intact Psych: Sleeping initially; Appropriate mood and affect; good judgement and insight. Results & Data Results & Data Vital Signs (Past 12 Hours) Vital Signs Temp Pulse Resp BP Pulse Ox O2 Del Method 03/30/25 02:30 68 18 148/94 H 96 Room Air 03/30/25 02:00 70 15 100/78 95 Room Air 03/30/25 01:31 71 19 138/94 96 Room Air 03/30/25 01:00 80 20 135/84 96 Room Air 03/30/25 00:54 81 03/30/25 00:49 83 18 96 Room Air 03/30/25 00:49 96 Room Air 03/30/25 00:49 36.8 C 83 18 131/86 96 Room Air Laboratory Results 03/30/25 00:54 WBC 11.28 H RBC 4.52 Hgb 13.6 Hct 41.8 MCV 92.5 MCH 30.1 MCHC 32.5 RDW Std Deviation 46.0 RDW Coeff of Steph 13.6 Plt Count 343 MPV 8.9 L Immature Gran % (Auto) 0.4 Neut % (Auto) 56.3 Lymph % (Auto) 33.3 [place] % (Auto) 6.9 Eos % (Auto) 2.7 Baso % (Auto) 0.4 Neut # (Auto) 6.35 Lymph # (Auto) 3.76 H [place] # (Auto) 0.78 H Eos # (Auto) 0.30 Baso # (Auto) 0.05 Immature Gran # (Auto) 0.04 Sodium 139 Potassium 4.2 Chloride 107 Carbon Dioxide 24 Anion Gap 8 BUN 15 Creatinine 0.83 Est Cr Clr Drug Dosing 65.9 eGFR 74.39 BUN/Creatinine Ratio 18.1 Glucose 114 H Calcium 9.3 Total Bilirubin 0.3 AST 20 ALT 12 Alkaline Phosphatase 48 Troponin I High Sens 7.3 Total Protein 7.2 Albumin 4.3 Globulin 2.9 Albumin/Globulin Ratio 1.5 Lipase 53 Medications Administered Tylenol 1 g p.o. Nitroglycerin paste ECG Additional Comments: NSR, possible LAE, nonspecific intraventricular conduction block, T wave abnormality 81 bpm, WI 172, QRS 136, QT/QTc 408/473, PRT 76/89/ -61 Code Status & VTE Plan Code Status DNR/DNI Supervising Physician Co-Signing Physician Notes Patient seen and examined, chart reviewed, case discussed with yLnn Adame PA-C and I agree with the assessment and plan as above except as otherwise noted Labs and images reviewed 2 days of intermittent chest pain both with exertion and at rest. Woke up overnight with L chest pressure and radiation to her Left arm. Called EMS. Resolved with aspirin and nitro. +Nausea with initial episode. Pain is same in quality to her prior ID in 2016 and 2021. She has a history of both PCI and triple bypass. EKG on admission is with conduction delay, LVH appears similar to prior On bedside assessment further reviewed quality and progression of her pain. She notes that she has noticed that she gets some shoulder discomfort before this with exertion, but this is worse in the last 2 days. At first she reports that her shoulder pain was similar to her prior ID and was only on exertion but then reports that this happened while she was just laying down and sleeping last night. Some episodes only lasting 15 seconds to a few minutes, longest episode yesterday lasted about 15 minutes before going away with rest. Same quality as her prior ID and the high risk history is potentially concerning for progressive angina now stuttering/unstable. She is pain-free at bedside however given concerning story and high risk history will heparinize and consult cardiology evaluate in the morning. N.p.o. pending further evaluation. If any recurrent chest pain repeat EKG, troponin, give nitro. Agree with above PG Care Time/CCT Total # of Minutes Spent Total Time Spent with Patient: Total time spent is greater than 50% in coordination of care (as documented) at patient's floor/unit and/or counseling patient: Coding Level of Care Code 97538 INT INP/OBS CARE 3/75MIN Diagnoses Arm pain, left M79.602 Chest pressure R07.89 Diabetes type 2, controlled E11.9
[2025-03-30] MEDS ORDERED: Heparin IV Adult Wt-Based Low-Dose w/ INITIAL Bolus Protocol IV STA (04:33)
[2025-03-30] MEDS ORDERED: MAGNESIUM HYDROXIDE SUSP 30 ML UDC PO PRN (04:46)
[2025-03-30] MEDS ORDERED: NITROGLYCERIN SL 0.4 MG/TAB TAB SL PRN (04:46)
[2025-03-30] MEDS ORDERED: POLYETHYLENE (MIRALAX) 17 GM PACK PO PRN (04:46)
[2025-03-30] MEDS ORDERED: ALBUTEROL HFA 8 GM INHALER INH PRN (04:46)
[2025-03-30] MEDS ORDERED: ONDANSETRON INJ 2 MG/ML 2 ML VIAL IV PRN (04:46)
[2025-03-30] MEDS ORDERED: ALBUT/IPRATROP 3MG/0.5MG NEB 3 ML VIAL INH PRN (04:46)
[2025-03-30] MEDS ORDERED: MELATONIN 3 MG TAB PO PRN (05:00)
[2025-03-30] MEDS: HEPARIN SOD (PORCINE) 1000 UNIT/ML IV ONE (05:27)
[2025-03-30] MEDS: HEPARIN 25000 UNIT/500 ML D5W 25,000 UNITS/500 ML BAG IV SCH (05:29)
[2025-03-30] MEDS: LEVOTHYROXINE SODIUM 25 MCG TABLET PO SCH (06:02)
[2025-03-30 07:44] VITALS: O2SAT 94
--- NOTE | 2025-03-30 08:20 | XRay Report ---
XR chest 1V portable HISTORY: 74 years-old Female Chest pain, nonspecific COMPARISON: Chest CT 02/20/2025 TECHNIQUE: AP view of the chest FINDINGS: Cardiac silhouette is normal in size. Numerous fractured sternotomy wires are again noted. Mild allen al dehiscence of 1.3 cm seen on the comparison CT. No pneumothorax, pleural effusion or airspace cons olidation. Emphysema with chronic interstitial coarsening. Superior cortical irregularity of the left scapula may be projectional. IMPRESSION: 1. Emphysema without acute intrathoracic abnormality. 2. Numerous fractured sternotomy wires are again noted along with redemonstration of mild sternal deh iscence, which appears unchanged from the 02/20/2025 CT study. ACT 112: Negative or not required by law. The above report was generated using voice recognition software. It may contain grammatical, syntax o r spelling errors. Electronically signed by: Manan Woo M.D. 03/30/2025 8:18 AM
[2025-03-30] MEDS ORDERED: ENOXAPARIN 1 MG/KG SQ SCH (08:30)
[2025-03-30] MEDS ORDERED: NON-FORMULARY MEDICATION (Fluticasone-Umeclidin-Vilanter [Trelegy Ellipta] 100-62.5-25 mcg INH SCH (09:00)
[2025-03-30] MEDS: glipiZIDE 5 MG TAB PO SCH (09:55)
[2025-03-30] MEDS: ASPIRIN 81 MG ECTAB PO SCH (09:56)
[2025-03-30] MEDS: METOPROLOL TARTRATE 25 MG TAB PO SCH (09:57)
[2025-03-30] MEDS: ATORVASTATIN 40 MG TAB PO SCH (09:57)
[2025-03-30] MEDS: MAGNESIUM OXIDE 400 MG TAB PO SCH (09:57)
[2025-03-30] MEDS: FOLIC ACID 1 MG TAB PO SCH (09:57)
[2025-03-30] MEDS: ENOXAPARIN 80 MG/0.8 ML SYR SQ SCH (09:59)
[2025-03-30] MEDS: FLUTICASONE FUROATE 100MCG 14 PUFFS/INHALER INH SCH (10:02)
[2025-03-30] MEDS: UMECLIDINIUM/VILANTEROL 62.5/25MCG 7 PUFFS/INHALER INH SCH (10:02)
[2025-03-30] MEDS: metFORMIN HCL 500 MG TAB PO SCH (10:06)
[2025-03-30 11:19] LABS: Appearance Urine Turbid (Clear); Bacteria Urine Automated 4+ (None Seen); Bilirubin Urine Negative (Negative); Blood Urine 1+ (Negative); Cast Urine Automated 0-2 /lpf (0-2); Color Urine Yellow; Epithelial Cell Urine Auto 0-2 /hpf (0-2); Glucose Urine UA Negative (Negative); Ketones Urine Negative (Negative); Leukocyte Esterase Urine 3+ (Negative); Nitrite Urine Positive (Negative); Protein Urine Negative (Negative); RBC Urine Automated 0-2 /hpf (0-2); Specific Gravity Urine 1.009 (1.000-1.030); Urobilinogen Urine Negative (Negative); WBC Urine Automated >50 /hpf (0-5); pH Urine 5.5 (4.5-7.5)
[2025-03-30 11:31] VITALS: BP 112/62; PULSE 79; RESP 18; TEMP 97.5
[2025-03-30] MEDS: FLUTICASONE PROPIONATE NA SPR 16 GM BTL NAE SCH (11:40)
--- NOTE | 2025-03-30 12:30 | Cardiology Consultation ---
Date of Consultation March 30, 2025 Assessment & Plan (1) Arm pain, left: -Most likely musculoskeletal. -Does not represent an acute coronary syndrome. -High-sensitivity troponins are normal. -No need for intravenous heparin. -Stable for hospital discharge. (2) CAD, multiple vessel: -Extensive history as described. -Continue medical management. (3) Hypertension: -Adequate control on current regimen. (4) Hyperlipidemia: -Continue atorvastatin. History of Present Illness Attending Physician: Sean Rivera MD, PhD History of Present Illness Mrs. Wang is a 74-year-old female admitted earlier today with left arm discomfort. This consultation was ordered to assist in her cardiac management. Of note, the patient typically follows with Dr. Estevez in the outpatient setting. The patient was in her usual state of health until approximately 2 weeks prior to presentation. She began to notice left upper extremity discomfort which was constant in nature. There were no other associated symptoms such as chest pain, shortness of breath, nausea, vomiting, or diaphoresis. The patient soon recognized that her discomfort occurred if she slept on her left side. On the nights she was able to sleep on her right side, she did not experience her left arm discomfort. The patient does carry an extensive cardiac history. Back in 2016, while living in [place], she had drug-eluting stents placed in the mid RCA, distal RCA, and proximal LAD. She also had an angioplasty performed to the proximal right coronary artery. The patient did well until December 2021 when she presented to our institution with a non-ST elevation NM. Cardiac catheterization revealed severe three- vessel disease. The patient then underwent a three-vessel bypass at [facility] in January 2022. This included SAL to the LAD, and SVG to OM1, and SVG to the PDA. The patient has done well from a cardiac perspective since that time. Past medical and surgical history 1. Coronary artery diseasesee above 2. CABG x 3March 2021, see above 3. Hypertension 4. Hypercholesterolemia 5. Diabetes mellitus 6. Severe COPD 7. Obstructive sleep apnea 8. Hypothyroidism 9. Anxiety 10. Cholecystectomy 11. 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 Quit tobacco use in 2020 No alcohol Family history Mother at 87 from unknown causes Father at 80 from prostate carcinoma Review of systems A 10 point review of system was undertaken and negative except that described above. Allergies Allergy/AdvReac Type Severity Reaction Status Date / Time mirtazapine AdvReac Mild diarrhea Verified 03/30/25 02:05 Sulfa (Sulfonamide AdvReac Fever Verified 03/30/25 02:16 Antibiotics) Home Medications Medication Instructions Recorded Confirmed Type ascorbic acid (vitamin C) 250 mg 250 mg PO QAM 02/15/22 03/30/25 History tablet cholecalciferol (vitamin D3) 25 25 mcg PO QAM 02/15/22 03/30/25 History mcg (1,000 unit) tablet melatonin 10 mg capsule 10 mg PO HS PRN sleep #1 cap 03/28/23 03/30/25 Rx aspirin 81 mg chewable tablet 81 mg PO QAM 12/21/23 03/30/25 History folic acid 1 mg tablet 1 mg PO QAM 01/14/24 03/30/25 History magnesium 250 mg tablet 250 mg PO QAM 01/14/24 03/30/25 History Oxygen Home #1 ea 01/17/24 02/25/25 Rx levothyroxine 25 mcg tablet 25 mcg PO DAILYBB #90 tabs 02/10/24 03/30/25 Rx metoprolol tartrate 25 mg tablet 12.5 mg (1/2 x 25 mg) PO BID 90 02/10/24 03/30/25 Rx days #90 tabs fluticasone fur. 100 mcg-umeclid 1 inh inhalation QAM #60 ea 03/26/24 03/30/25 Rx 62.5 mcg-vilant 25 mcg inhalat.powder (Trelegy Ellipta) ipratropium 0.5 mg-albuterol 3 mg 3 ml inhalation Q8H PRN shortness 03/26/24 03/30/25 Rx (2.5 mg base)/3 mL nebulization of breath or wheezing #180 mL soln metformin 1,000 mg tablet 1,000 mg PO BID #180 tabs 07/19/24 03/30/25 Rx ondansetron HCl 4 mg tablet 4 mg PO Q8H PRN nausea and 09/20/24 03/30/25 Rx vomiting #30 tabs glipizide 2.5 mg tablet 2.5 mg PO DAILY #90 tabs 11/12/24 03/30/25 Rx atorvastatin 80 mg tablet 80 mg PO QAM #90 tabs 11/13/24 03/30/25 Rx albuterol sulfate 90 mcg/actuation 2 puff inhalation Q6H PRN 12/11/24 03/30/25 Rx aerosol inhaler Shortness Of Breath Or Wheezing #18 grams nitroglycerin 0.4 mg sublingual 0.4 mg sublingual Q5M PRN chest 12/27/24 03/30/25 Rx tablet (Nitrostat) pain #25 tabs cyanocobalamin (vitamin B-12) 1,000 mcg subcut MONTHLY #1 ea 01/02/25 03/30/25 Rx 1,000 mcg/mL injection kit blood sugar diagnostic (OneTouch #100 ea 01/15/25 02/25/25 Rx Verio test strips) lancing device with lancets kit #1 ea 01/15/25 02/25/25 Rx (OneTouch Delica Plus Lancing Device kit) duloxetine 30 mg capsule,delayed 30 mg PO HS 90 days #90 caps 03/11/25 03/30/25 Rx release (Cymbalta) zinc gluconate 50 mg tablet 50 mg PO DAILY 03/30/25 03/30/25 History Patient History Medical History History of NM (myocardial infarction) Asymptomatic bacteriuria Non-ST elevation (NSTEMI) myocardial infarction Arm pain Glaucoma Mild cognitive disorder History of tobacco abuse Seizure Asthma Diabetes Exertional shortness of breath Surgical History Hx of wisdom tooth extraction Hx of cholecystectomy H/O: hysterectomy Family History Father , age 85 of metastatic prostate cancer Colorectal cancer Cancer Prostate cancer Brother Hypertension Mother , age 87 with complications of diabetes Diabetes Denies family history of Ovarian cancer Dyslipidemia Myocardial infarction Breast cancer Lung cancer Social History Smoking Status: Current some day smoker Tobacco Type: Cigarettes Age Started Using Tobacco: 22; Age Quit Using Tobacco: 71; packs per day: 1; Cigarettes Per Day: 0; Second Hand Exposure: No; Do You Dip or Chew Tobacco: No; Tobacco Cessation Education Requested by Patient: No Hx Alcohol Use: No Hx Substance Use: No Preferred Language: Cypriot Communication Ability: Effective Testing Engineer Required: No Beliefs That Will Affect Care: None marital status: Single Current Living Situation: Alone Current Living Situation Comment: jail apartment complex current occupational status: retired 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 Feels Safe at Home: Yes Safety Concerns: Feels Safe At This Time Childhood Exposure to Second-Hand Smoke: No caffeine: Yes Dental Care, Regularly: Yes Physical Activity Frequency: 5-6 Times per Week Seatbelt Use: always Sunscreen Use: No Assistive Devices: Glasses and Walker Assistive Devices Comment: using a hearing Physical Exam Physical Exam: In general this is a well-developed well-nourished white female in no acute distress. HEENT exam is negative. Neck reveals normal carotid upstrokes without bruits. Jugular venous pressure is flat at 90. There is no thyromegaly. Cardiov ascular exam reveals a regular rhythm with a normal S1 and S2. Heart sounds are distant. No obvious murmurs. Chest reveals a well-healed midline scar. Lungs are clear without rales, rhonchi, or wheezes. Abdomen is soft without bruits. Extremities reveal intact radial artery pulses bilaterally. There is no peripheral edema. Results & Data Vital Signs (Past 12 Hours) Vital Signs Temp Pulse Pulse Resp BP BP Pulse Ox 03/30/25 11:30 36.4 C L 79 18 112/62 94 03/30/25 07:43 36.5 C 81 20 130/84 94 03/30/25 07:40 75 03/30/25 05:03 36.4 C L 68 14 150/79 H 97 03/30/25 04:46 03/30/25 03:00 75 15 154/92 H 95 03/30/25 02:30 68 18 148/94 H 96 03/30/25 02:00 70 15 100/78 95 03/30/25 01:31 71 19 138/94 96 03/30/25 01:00 80 20 135/84 96 03/30/25 00:54 81 03/30/25 00:49 83 18 96 03/30/25 00:49 96 03/30/25 00:49 36.8 C 83 18 131/86 96 Pulse Ox O2 Del Method O2 Del Method 03/30/25 11:30 Room Air 03/30/25 07:43 Room Air 03/30/25 07:40 03/30/25 05:03 Room Air 03/30/25 04:46 97 Room Air 03/30/25 03:00 Room Air 03/30/25 02:30 Room Air 03/30/25 02:00 Room Air 03/30/25 01:31 Room Air 03/30/25 01:00 Room Air 03/30/25 00:54 03/30/25 00:49 Room Air 03/30/25 00:49 Room Air 03/30/25 00:49 Room Air Laboratory Results CBC and PRP are unremarkable. Initial high-sensitivity troponin was 7.3 with a follow-up value of 7.6. Diagnostic Findings EKG notes sinus rhythm and nonspecific interventricular conduction delay. This is unchanged from prior tracings. Chest x-ray shows no acute disease. Postoperative changes noted. PG Care Time/CCT Total # of Minutes Spent Total Time Spent with Patient: Total time spent is greater than 50% in coordination of care (as documented) at patient's floor/unit and/or counseling patient: Coding Level of Care Code 25271 INT INP/OBS CARE 3/75MIN Diagnoses Arm pain, left M79.602 CAD, multiple vessel I25.10 Hypertension I10 Hyperlipidemia E78.5
--- NOTE | 2025-03-30 12:54 | XCELERA ---
[id number] \\[email or web address]\[id number]
--- NOTE | 2025-03-30 13:03 | Discharge Summary ---
Discharge Summary Date of Service March 30, 2025 Principal Dx & Hospital Course #1 = Principal Diagnosis (1) Arm pain, left: (2) Chest pressure: (3) Diabetes type 2, controlled: Plan 74 years old female with PMH of DNR/DNI @ home, idiopathic polyneuropathy, idiopathic hypertrophic pachymeningitis, cognitive impairment, former tobacco abuse with subsequent diagnosis of COPD, not on home O2 or home steroids, just albuterol MDI 90ug/puff, 2 puffs PO q6 prn SOB/wheeze, duonebs q8 prn SOB/wheeze, and fluticasone 100ug - umeclidinium 62.5ug - vilanterol 25ug/puff, 1 puff PO qam, hypothyroidism with TSH 2.477 uIU/mL (09/24/2024, 3:26pm) on synthroid 25ug PO daily, non-insulin dependent DM2 with HbA1c 7.1% (01/17/2025, 12:49pm) on glipizide 2.5mg PO daily and metformin 1000mg PO bid, diabetic neuropathy on duloxetine 30mg PO qhs, HTN on metoprolol 12.5mg PO bid, CAD s/p acute NSTEMI, s/p 3 vessel CABG, s/p drug-eluting RCA stent, s/p drug- eluting LAD stent, on ASA 81mg PO daily and atrovastatin 80mg PO qam, and henson- sensitive E. coli UTI (as noted on 09/24/2024, 3:30pm urine culture; 02/25/2025 urine culture), who presented with complaints of worsening left arm pain over the past 2 days with coincident dysuria over the past 2 days. Patient was subsequently placed in OBSERVATION on the hospitalist service @ [facility] on 03/29/2025 with the following diagnoses: 1. Atypical chest pain, s/p ANGELIQUE with troponin-I negative/normal x 3 (e.g., 7.3 pg/mL (03/30/2025, 12:54am); 7.6 pg/mL (03/30/2025, 4:13am); 6.4 pg/mL (03/30/2025, 10:14am)). 2. Acute leukocytosis with WBC 11.28, N56 L33 M7 E3 (03/30/2025, 6:54am), due to acute UTI. The following medical issues were addressed while the patient remained in [facility] from 03/29/2025 through 03/30/2025: 1. CV. Atypical chest pain, s/p ANGELIQUE with troponin-I negative/normal x 3 (e.g., 7.3 pg/mL (03/30/2025, 12:54am); 7.6 pg/mL (03/30/2025, 4:13am); 6.4 pg/mL (03/30/2025, 10:14am)). Observe off telemetry. Most likely musculo- skeletal in etiology in the setting of acute UTI. Patient may follow up with her CARDS Dr. Mark Estevez within 5-7 days of hospital discharge. 2. Infectious Disease. Acute leukocytosis with WBC 11.28, N56 L33 M7 E3 (03/14, 6:54am), due to acute UTI, which explains the patient's complaints of dysuria (without hematuria, frequency, urgency, flank pain, fevers, chills, diaphoresis, N/V/D) for the past 2 days at home. Patient received cefdinir 300mg PO x 1 dose (03/30/2025, 12:36pm) while in [facility], based on patient's past medical history of henson-sensitive E. coli UTI (as noted on 09/24/2024, 3:30pm urine culture; 02/25/2025 urine culture). Patient tolerated this test dose of cefdinir 300mg PO x 1 dose (03/30/2025, 12:36pm) well, and hence, will continue and complete a 3 day course of cefdinir 300mg PO bid at her home, starting on 03/30/2025 pm. To this end, patient's [id number] ([id number] [place] [address]) received an electronic prescription for cefdinir 300mg PO bid, #5 capsules, no refills, prior to discharge back to patient's home on 03/30/2025 pm. Patient was advised to follow up with her PCP Dr. Lui Burns on 04/01/2025, as already scheduled in regards to the urine culture (03/30/2025, 11:00am) results. Patient reports that she will comply with this recommendation. Other secondary medical issues include: #Non-insulin dependent DM2 with HbA1c 7.1% (01/17/2025, 12:49pm) on home- scheduled glipizide 2.5mg PO daily and metformin 1000mg PO bid. Continue home-scheduled glipizide 2.5mg PO daily and metformin 1000mg PO bid while in [facility] and on hospital discharge home on 03/30/2025. #HTN- Well-controlled with discharge BP 112/62 (03/30/2025, 11:30am). Continue home-scheduled metoprolol 12.5mg PO bid while in [facility] and on hospital discharge home on 03/30/2025. #CAD s/p acute NSTEMI, s/p 3 vessel CABG, s/p drug-eluting RCA stent, s/p drug- eluting LAD stent. Continue home-scheduled ASA 81mg PO daily and atorvastatin 80mg PO qam while in [facility] and on hospital discharge home on 03/30/2025. #COPD- Stable, no current exacerbation; Follows with pulm, most recent visit 03/26/2024. Continue home-scheduled albuterol MDI 90ug/puff, 2 puffs PO q6 prn SOB/wheeze, duonebs q8 prn SOB/wheeze, and fluticasone 100ug - umeclidinium 62.5ug - vilanterol 25ug/puff, 1 puff PO qam while in [facility] and on hospital discharge home on 03/30/2025. #Diabetic neuropathy. Continue home-scheduled duloxetine 30mg PO qhs while in [facility] and on hospital discharge home on 03/30/2025. -- OF NOTE - ?? possible seizure disorder; pt previously on keppra but has since been weaned off with NO seizures/seizure like activity (per neuro note, 05/28/2024) #Hypothyroidism. Continue home-scheduled synthroid 25ug PO daily while in [facility] and on hospital discharge home on 03/30/2025. Admission HPI Per Admitting Provider 74-year-old female PMHx T2DM, HTN, CAD with prior MA and s/p RUSS and CABG x 3, HLD, idiopathic polyneuropathy, idiopathic hypertrophic pachymeningitis, cognitive impairment, and COPD presenting for L arm pain x 2 days, and worsening the night [employer]. Patient did receive 1 nitro and full dose aspirin by EMS. Pt reports that for the past 2 days [employer], she noticed she started to have some L arm discomfort which reminded her of her prior MA. Reports that over the course of days leading up to arrival, the pain would come and go but ultimately was tolerable and lasting less than 15 minutes at a time. At exertion and rest. The night of arrival however she got worsening L arm pain that would not resolve and at its worse, the pain was a 6/10 on the pain scale. Currently the patient is pain free. She was concerned when she had associated chest pressure on the L side of her chest as well which prompted her arrival to ED. Reports minimal nausea starting the night of arrival but no vomiting. No fever or chills. No recent injuries or trauma to L arm. Denies SOB, palpitations, abdominal pain, D/ C, numbness/tingling, URI symptoms, LUTS, weakness, or syncope. Has had similar episodes of symptom in the past that were preludes to MA, therefore the patient came for evaluation via EMS today. ED evaluation reveals mild leukocytosis 11.28, stable H&H; CMP grossly unremarkable with exception of glucose 114; troponin 7.3, pending repeat; CXR pending official read; EKG normal sinus rhythm possible LAE and nonspecific intraventricular conduction block at 81 bpm.; provided with Tylenol 1 g p.o. and nitroglycerin paste in ED. Please see Dr. Mohr's attestation for adjustments/additions to treatment plan. Discharge Exam Constitutional General: Comfortable, coherent, and cooperative. Wide awake and alert. Not confused, lethargic, or obtunded. Patient speaks in complete, fluent, and articulate sentences without pause, interruption, cough, or wheeze. HEENT: Normocephalic, atraumatic. No nystagmus, gaze paresis, anisocoria, miosis, mydriasis, hyphema, scleral injection, conjunctivitis, or pterygium. No otorrhea or rhinorrhea. No pharyngeal erythema, edema, or discharge. Neck: Supple, no stridor, bruit, goiter, or hepato-jugular reflux. Jugular venous pressure is estimated to be 3 cm above the sternal angle of Dino, which in turn, is 5 cm above the level of the right atrium; with jugular venous pressure estimated to be 8 cm, then, there is no jugular venous distention on 03/30/2025. Lymphatics: No cervical (anterior/posterior), supraclavicular, infraclavicular, axillary, epitrochlear, or inguinal adenopathy. Chest: Symmetric rise and fall with respirations. Non-tender to palpation. Lungs: Clear to auscultation and percussion. Heart: Regular rate and rhythm. S1 and S2 noted. No S3 or S4 summation gallop. No tripartite friction rub. Grade II/ early systolic murmur @ LLSB without radiation to the carotids, axilla, or back, and which remains invariant in regards to the respiratory cycle. Abdomen: Soft, non-tender, non-distended. No rebound, guarding, Mu rphy's sign, or organomegaly. Bowel sounds auscultated in all 4 quadrants. Extremities: No clubbing, cyanosis. 2+ pitting pedal edema with extension to the bilateral mid-shins, sparing the bilateral upper shins, knees, hips, thighs, abdomen. 2+ pedal pulses bilaterally. Skin: No decubitus ulcer, exanthem, or enanthem. Genito-urinary: No urethral discharge. No velasquez catheter. Neurology: Alert and oriented in regards to person, place, time, and situation. DTR+ and symmetric. 5/5 motor strength in all 4 extremities, both proximally and distally. No pronator drift. No facial droop. No dysarthria. Psychiatry: No homicidal ideation. No suicidal ideation. No flat affect; smiles appropriately. Discharge Plan Discharge Items Patient Disposition: Home - Self-Care Reason For Visit: CHEST PRESSURE/ L ARM PAIN Discharge Diagnosis: 1. Acute UTI. 2. Atypical chest pain, s/p ANGELIQUE. Condition on Discharge: Good Bathing: No limitations Sexual Activity: When tolerated Driving/Machine Use: No limitations Weightbearing: Full weightbearing Non-emergency contact: Primary Care Provider Call non-emergency contact if: you have any medication questions Follow-up/Referrals: Mark Estevez Jr, MD, FAC [Physician] - (See your CARDS Dr. Mark Estevez within 5 days of hospital discharge.) Lui Burns DO [Primary Care Provider] - Diet: Heart Healthy Addtl Attending Provider Instructions: Check urine culture (03/30/2025, 11:00am) results within 5 days. Pending Studies at Discharge: Yes Studies:: Urine culture (03/30/2025, 11:00am) results within 5 days. Stand-Alone Forms: [facility] [employer], Smoking Cessation Medications and DC Order Prescriptions: New cefdinir 300 mg Capsule 300 mg PO BID Qty: 5 0RF Continued levothyroxine 25 mcg tablet 25 mcg PO DAILYBB Qty: 90 3RF metoprolol tartrate 25 mg tablet 12.5 mg PO BID 90 Days Qty: 90 3RF metformin 1,000 mg tablet 1,000 mg PO BID Qty: 180 3RF glipizide 2.5 mg tablet 2.5 mg PO DAILY Qty: 90 3RF atorvastatin 80 mg tablet 80 mg PO QAM Qty: 90 3RF albuterol sulfate 90 mcg/actuation HFA aerosol inhaler 2 puff inhalation Q6H PRN (Reason: Shortness Of Breath Or Wheezing) Qty: 18 3RF (DME) lancing device with lancets [kompanyTouch Delica Plus Lanc Dev] Kit See Rx Instructions .Route Qty: 1 3RF Rx Instructions: As directed (DME) OneTouch Verio test strips Strip See Rx Instructions .Route Qty: 100 3RF Rx Instructions: testing 1 time daily duloxetine [Cymbalta] 30 mg capsule,delayed release(DR/EC) 30 mg PO HS 90 Days Qty: 90 3RF aspirin 81 mg tablet,chewable 81 mg PO QAM ascorbic acid (vitamin C) 250 mg tablet 250 mg PO QAM cholecalciferol (vitamin D3) 25 mcg (1,000 unit) tablet 25 mcg PO QAM melatonin 10 mg capsule 10 mg PO HS PRN (Reason: sleep) Qty: 1 0RF Trelegy Ellipta 100-62.5-25 mcg blister with device 1 inh inhalation QAM Qty: 60 12RF ipratropium-albuterol 0.5 mg-3 mg(2.5 mg base)/3 mL solution for nebulization 3 ml inhalation Q8H PRN (Reason: shortness of breath or wheezing) Qty: 180 4RF cyanocobalamin (vitamin B-12) 1,000 mcg/mL kit 1,000 mcg subcut MONTHLY Qty: 1 11RF nitroglycerin [Nitrostat] 0.4 mg tablet, sublingual 0.4 mg sublingual Q5M PRN (Reason: chest pain) Qty: 25 1RF Rx Instructions: do not exceed 3 doses per episode folic acid 1 mg Tablet 1 mg PO QAM magnesium 250 mg Tablet 250 mg PO QAM (DME) Oxygen Home Liters Per Minute See Rx Instructions .Route Qty: 1 0RF Rx Instructions: As directed zinc gluconate 50 mg Tablet 50 mg PO DAILY Discontinued ondansetron HCl 4 mg tablet 4 mg PO Q8H PRN (Reason: nausea and vomiting) Qty: 30 1RF Discharge Orders: Discharge Order (Routine); Ordered 03/30/25 Ordered By: Sean Rivera Discharge Order- CHF (Routine); Ordered 03/30/25 Ordered By: Sean Rivera Admission Data Admit Date/Time: 03/30/25 04:01 Attending Provider: Sean Rivera Admit Provider: Jerry Mohr Primary Care Provider: Lui Burns Other Providers: Jerry Mohr Hospital Stay Data Consultations 03/30/25 03:19 ED Decision to Admit Stat Pending Results Patient Have Any Pending Studies at Discharge: Yes Discharge Instructions Given to Patient (Per Discharging Provider) Check urine culture (03/30/2025, 11:00am) results within 5 days. Total Time Total Time Spent Total Time Spent (In Minutes): 35 minutes. Of this time period, 19 minutes were spent in coordinating patient's discharge. Coding Level of Care Code 44459 INP/OBS DISCH >30 MIN Diagnoses Arm pain, left M79.602 Chest pressure R07.89 Diabetes type 2, controlled E11.9
[2025-03-30] MEDS: ACETAMINOPHEN 325 MG TAB PO PRN (13:36)
[2025-03-30] MEDS: CEFDINIR 300 MG CAP PO SCH (13:36)
--- NOTE | 2025-03-30 13:53 | Electrocardiogram Report ---
Test Reason : Blood Pressure : */* mmHG Vent. Rate : 81 BPM Atrial Rate : 81 BPM P-R Int : 172 ms QRS Dur : 136 ms QT Int : 408 ms P-R-T Axes : 76 89 -61 degrees QTcB Int : 473 ms Normal sinus rhythm Possible Left atrial enlargement Non-specific intra-ventricular conduction block T wave abnormality, consider inferior ischemia Abnormal ECG When compared with ECG of 14-Jan-2024 17:25, T wave inversion more evident in Inferior leads Confirmed by Varun Anton ([id number]) on 03/30/2025 1:53:16 PM Referred By: REFERRED SELF Confirmed By: Varun Anton
[2025-03-30] MEDS ORDERED: DULoxetine HCL 30 MG CAP PO SCH (21:00)
== END 2025-03-30 14:42 | disposition home or self-care (01) ==
LOC: ED 00:48 → 2N 00:48 → SUATTDRO 04:01 → 2N 04:35